=== PATIENT | male | born 1955 | race Caucasian/White ===

== ENCOUNTER 2024-10-06 11:34 | Outpatient (CLI) | payer MEDICARE, SELFPAY ==
--- NOTE | 2024-10-06 11:50 | ECG_ITS ---
Test Date: 2024-10-06 12:04:29 Measurements Intervals [place] Switch Rate: 70 P: 73 [place]: 185 QRS: 48 QRSD: 89 T: 52 QT: 363 QTc: 392 Interpretive Statements SINUS RHYTHM No previous ECG available for comparison Electronically Signed On 10-06-2024 14:03:22 CDT by Gokul Mar M.D.
--- OUTSIDE RECORDS SUMMARY | 2024-10-06 13:47 | XMS_ITS | Data Portability ---
Author Organization [facility], Main Office Address [address] [place] [address] Assessment Encounter Date Assessment Date Assessment LastModified by Organization Details LastModified Time 02/05/2023 02/05/2023 Compression socks rosuvastatin blood work 6 month follow-up diet discussed exercise discussed [email or web address] Not available 02/05/2023 15:19:41 08/06/2023 08/06/2023 Continue current therapy and follow up in 6 months [email or web address] Not available 08/06/2023 22:53:29 Plan of Treatment Reminders Order Date Submit Date Provider Last Modified By Organization Details Last Modified Time Details Appointments None recorded . Lab CMP, serum or plasma 024 08/06/19 24 [facility], [address] [place], [address], 4 19:07:31 lipid panel, serum 024 08/06/19 24 [facility], [address] [place], [address], 4 19:07:57 CBC w/ auto diff 024 08/06/19 24 [facility], [address] [place], [address], 4 18:14:59 lipid panel, serum 023 02/06/20 23 [facility], [address] [place], [address], 3 19:20:59 CMP, serum or plasma 023 02/06/20 23 [facility], [address] [place], [address], 3 19:21:04 Referral None recorded . Procedures None recorded . Surgeries None recorded . Imaging None recorded . Medication Orders None recorded . Patient TargetsNo targets recorded. Patient InstructionsNo instructions recorded. Reason for Referral None Reported. Results Created Date Observation Date Name Description Value Unit Range Abnormal Flag Note LastModifiedBy Organization Detail LastModifiedTime 08/01/19 22 08/01/2021 COMPR EHENS RUI METAB OLIC PANEL aspartate aminotransfe rase 30 U/L 15-46 Not Available [facility] (Lab) [address] [place], [address], 08/01/2021 14:48:11 08/01/19 22 08/01/2021 COMPR EHENS RUI METAB OLIC PANEL GFR >60 Refer ence Range : [place] ge GFR Healt hy Adult : >60 mL/mi n/1.7 3 m2 Chron ic Kidne y Disea se: 15-60 mL/mi n/1.7 3 m2 Kidne y Failu re: <15/m L/min /1.73 m2 www.n iddk. nih.g ov The MDRD study equat ion has not been valid ated in child virgil <18 years of age; pregn ant women ; the elder ly >85 years of age; or in some racia l or ethni c subgr oups, such as [facility] nics. Outsi de the valid ated shayla eters , estim ated GFR is less accur ate, requi ring clini margret judgm ent on a case- by-ca se basis . Clini margret inter preta tion for other races and ages must be made by the clini nargis. The MDRD study equat ion has not been valid ated for the evalu ation of serum creat inine relat ed to nutri renea l statu s or medic ation usage . For perso ns <18 years of age, a pedia tric GFR calcu lator is avail able on the [facility] websi te: https :[email or web address] [email or web address] [email or web address] rg/pr ofess ional s/kdo qi/gf r_cal culat or Not Available [facility] (Lab) [address] [place], [address], 08/01/2021 14:48:11 08/01/19 22 08/01/2021 COMPR EHENS RUI METAB OLIC PANEL alkaline phosphatase 64 U/L 38-126 Not Available [facility] (Lab) [address] [facility] [place], [address], 08/01/2021 14:48:11 08/01/19 22 08/01/2021 COMPR EHENS RUI METAB OLIC PANEL alanine aminotransfe rase 28 U/L 0-50 Not Available [facility] (Lab) [address] [place], [address], 08/01/2021 14:48:11 08/01/19 22 08/01/2021 COMPR EHENS RUI METAB OLIC PANEL bilirubin, total 0.40 mg/dL 0.20-1 .30 Not Available [facility] (Lab) [address] [place], [address], 08/01/2021 14:48:11 08/01/19 22 08/01/2021 COMPR EHENS RUI METAB OLIC PANEL calcium 9.3 mg/dL 8.4-10 .2 Not Available [facility] (Lab) [address] [place], [address], 08/01/2021 14:48:11 08/01/19 22 08/01/2021 COMPR EHENS RUI METAB OLIC PANEL total protein 7.0 g/dL 6.3-8. 2 Not Available [facility] (Lab) [address] [place], [address], 08/01/2021 14:48:11 08/01/19 22 08/01/2021 COMPR EHENS RUI METAB OLIC PANEL albumin 4.2 g/dL 3.0-4. 4 Not Available [facility] (Lab) [address] [place], [address], 08/01/2021 14:48:11 08/01/19 22 08/01/2021 COMPR EHENS RUI METAB OLIC PANEL globulin 2.8 g/dL 2.6-4. 2 Not Available [facility] (Lab) [address] [place], [address], 08/01/2021 14:48:11 08/01/19 22 08/01/2021 COMPR EHENS RUI METAB OLIC PANEL A/G ratio 1.5 ratio 1.0-2. 0 Not Available [facility] (Lab) [address] [place], [address], 08/01/2021 14:48:11 08/01/19 22 08/01/2021 COMPR EHENS RUI METAB OLIC PANEL carbon dioxide 28 mmol/ L 22-30 Not Available [facility] (Lab) [address] [facility] [place], [address], 08/01/2021 14:48:11 08/01/19 22 08/01/2021 COMPR EHENS RUI METAB OLIC PANEL sodium 136 mmol/ L 137-14 5 low Not Available [facility] (Lab) [address] [place], [address], 08/01/2021 14:48:11 08/01/19 22 08/01/2021 COMPR EHENS RUI METAB OLIC PANEL potassium 5.2 mmol/ L 3.5-5. 1 high Not Available [facility] (Lab) [address] [place], [address], 08/01/2021 14:48:11 08/01/19 22 08/01/2021 COMPR EHENS RUI METAB OLIC PANEL chloride 103 mmol/ L 98-107 Not Available [facility] (Lab) [address] [place], [address], 08/01/2021 14:48:11 08/01/19 22 08/01/2021 COMPR EHENS RUI METAB OLIC PANEL agap 10.2 mmol/ L 14-22 low Not Available [facility] (Lab) [address] [place], [address], 08/01/2021 14:48:11 08/01/19 22 08/01/2021 COMPR EHENS RUI METAB OLIC PANEL glucose 109 mg/dL 70-99 high Not Available [facility] (Lab) [address] [place], [address], 08/01/2021 14:48:11 08/01/19 22 08/01/2021 COMPR EHENS RUI METAB OLIC PANEL BUN 10 mg/dL 8-19 Not Available [facility] (Lab) [address] [place], [address], 08/01/2021 14:48:11 08/01/19 22 08/01/2021 COMPR EHENS RUI METAB OLIC PANEL creatinine 0.82 mg/dL 0.66-1 .25 Not Available [facility] (Lab) [address] [place], [address], 08/01/2021 14:48:11 08/01/19 22 08/01/2021 LIPID PANEL cholesterol 174 mg/dL 140-19 9 NIH ERIC NSUS RECOM MENDA TION FOR MARY STERO L: ADULT CHILD LOW RISK: <200 <170 BORDE RLINE : <200- 239 ----- HIGH RISK: >240 >200 Not Available [facility] (Lab) [address] [place], [address], 08/01/2021 14:48:16 08/01/1908/01/2021 LIPID PANEL triglyceride s 70 mg/dL 0-150 NIH ERIC NSUS REPOR T RECOM MENDA TION FOR TRIGL YCERI JOSS: ADULT CHILD LOW RISK: <150 ----- BODER LINE: 150-1 99 ----- HIGH RISK: >200 ----- Not Available [facility] (Lab) [address] [place], [address], 08/01/2021 14:48:16 08/01/19 22 08/01/2021 LIPID PANEL HDL cholesterol 58 mg/dL 40- Not Available [facility] (Lab) [address] [place], [address], 08/01/2021 14:48:16 08/01/19 22 08/01/2021 LIPID PANEL LDL cholesterol, calculated 102 mg/dL 0-130 NIH ERIC NSUS REPOR T RECOM MENDA TIONS FOR LDL: ADULT CHILD LOW RISK <130 <110 (OPTI MAL LDL) <100 ----- BORDE RLINE : 130-1 59 ----- HIGH RISK: >160 >130 A TRIGL YCERI DE RESUL T >400 INVAL IDATE S THE CALCU LATIO N FOR LDL FRACT IONAT ION - THE LDL RESUL T WILL NOT BE REPOR LEODAN. Not Available [facility] (Lab) [address] [place], [address], 08/01/2021 14:48:16 02/07/20 22 02/06/2022 COMPR EHENS RUI METAB OLIC PANEL alanine aminotransfe rase 18 U/L 0-50 Not Available [facility] (Lab) [address] [place], [address], 02/06/2022 15:11:05 02/07/20 22 02/06/2022 COMPR EHENS RUI METAB OLIC PANEL aspartate aminotransfe rase 25 U/L 15-46 Not Available [facility] (Lab) [address] [place], [address], 02/06/2022 15:11:05 02/07/20 22 02/06/2022 COMPR EHENS RUI METAB OLIC PANEL bilirubin, total 0.50 mg/dL 0.20-1 .30 Not Available [facility] (Lab) [address] [place], [address], 02/06/2022 15:11:05 02/07/20 22 02/06/2022 COMPR EHENS RUI METAB OLIC PANEL calcium 9.5 mg/dL 8.4-10 .2 Not Available [facility] (Lab) [address] [place], [address], 02/06/2022 15:11:05 02/07/20 22 02/06/2022 COMPR EHENS RUI METAB OLIC PANEL total protein 7.0 g/dL 6.3-8. 2 Not Available [facility] (Lab) [address] [place], [address], 02/06/2022 15:11:05 02/07/20 22 02/06/2022 COMPR EHENS RUI METAB OLIC PANEL albumin 4.4 g/dL 3.0-4. 4 Not Available [facility] (Lab) [address] [place], [address], 02/06/2022 15:11:05 02/07/20 22 02/06/2022 COMPR EHENS RUI METAB OLIC PANEL globulin 2.6 g/dL 2.6-4. 2 Not Available [facility] (Lab) [address] [place], [address], 02/06/2022 15:11:05 02/07/20 22 02/06/2022 COMPR EHENS RUI METAB OLIC PANEL A/G ratio 1.7 ratio 1.0-2. 0 Not Available [facility] (Lab) [address] [place], [address], 02/06/2022 15:11:05 02/07/20 22 02/06/2022 COMPR EHENS RUI METAB OLIC PANEL carbon dioxide 22 mmol/ L 22-30 Not Available [facility] (Lab) [address] [place], [address], 02/06/2022 15:11:05 02/07/20 22 02/06/2022 COMPR EHENS RUI METAB OLIC PANEL sodium 135 mmol/ L 137-14 5 low Not Available [facility] (Lab) [address] [place], [address], 02/06/2022 15:11:05 02/07/20 22 02/06/2022 COMPR EHENS RUI METAB OLIC PANEL potassium 4.5 mmol/ L 3.5-5. 1 Not Available [facility] (Lab) [address] [place], [address], 02/06/2022 15:11:05 02/07/20 22 02/06/2022 COMPR EHENS RUI METAB OLIC PANEL chloride 106 mmol/ L 98-107 Not Available [facility] (Lab) [address] [place], [address], 02/06/2022 15:11:05 02/07/20 22 02/06/2022 COMPR EHENS RUI METAB OLIC PANEL anion gap 11.5 mmol/ L 14-22 low Not Available [facility] (Lab) [address] [place], [address], 02/06/2022 15:11:05 02/07/20 22 02/06/2022 COMPR EHENS RUI METAB OLIC PANEL glucose 103 mg/dL 70-99 high Not Available [facility] (Lab) [address] [place], [address], 02/06/2022 15:11:05 02/07/20 22 02/06/2022 COMPR EHENS RUI METAB OLIC PANEL BUN 12 mg/dL 8-19 Not Available [facility] (Lab) [address] [place], [address], 02/06/2022 15:11:05 02/07/20 22 02/06/2022 COMPR EHENS RUI METAB OLIC PANEL creatinine 0.81 mg/dL 0.66-1 .25 Not Available [facility] (Lab) [address] [place], [address], 02/06/2022 15:11:05 02/07/20 22 02/06/2022 COMPR EHENS RUI METAB OLIC PANEL GFR >60 Refer ence Range : [place] ge GFR Healt hy Adult : >60 mL/mi n/1.7 3 m2 Chron ic Kidne y Disea se: 15-60 mL/mi n/1.7 3 m2 Kidne y Failu re: <15/m L/min /1.73 m2 www.n iddk. [facility].g ov The MDRD study equat ion has not been valid ated in child virgil <18 years of age; pregn ant women ; the elder ly >85 years of age; or in some racia l or ethni c subgr oups, such as [facility] nics. Outsi de the valid ated shayla eters , estim ated GFR is less accur ate, requi ring clini margret judgm ent on a case- by-ca se basis . Clini margret inter preta tion for other races and ages must be made by the clini nargis. The MDRD study equat ion has not been valid ated for the evalu ation of serum creat inine relat ed to nutri renea l statu s or medic ation usage . For perso ns <18 years of age, a pedia tric GFR calcu lator is avail able on the [facility] websi te: https :[email or web address] [email or web address].o rg/pr ofess ional s/kdo qi/gf r_cal culat or Not Available [facility] (Lab) [address] [place], [address], 02/06/2022 15:11:05 02/07/20 22 02/06/2022 COMPR EHENS RUI METAB OLIC PANEL alkaline phosphatase 56 U/L 38-126 Not Available [facility] (Lab) [address] [place], [address], 02/06/2022 15:11:05 02/07/20 22 02/06/2022 LIPID PANEL cholesterol 124 mg/dL 140-19 9 low NIH ERIC NSUS RECOM MENDA TION FOR MARY STERO L: ADULT CHILD LOW RISK: <200 <170 BORDE RLINE : <200- 239 ----- HIGH RISK: >240 >200 Not Available [facility] (Lab) [address] [place], [address], 02/06/2022 15:10:59 02/07/20 22 02/06/2022 LIPID PANEL triglyceride s 46 mg/dL 0-150 NIH ERIC NSUS REPOR T RECOM MENDA TION FOR TRIGL YCERI JOSS: ADULT CHILD LOW RISK: <150 ----- BODER LINE: 150-1 99 ----- HIGH RISK: >200 ----- Not Available [facility] (Lab) [address] [place], [address], 02/06/2022 15:10:59 02/07/20 22 02/06/2022 LIPID PANEL HDL cholesterol 55 mg/dL 40- Not Available [facility] (Lab) [address] [place], [address], 02/06/2022 15:10:59 02/07/20 22 02/06/2022 LIPID PANEL LDL cholesterol, calculated 60 mg/dL 0-130 NIH ERIC NSUS REPOR T RECOM MENDA TIONS FOR LDL: ADULT CHILD LOW RISK <130 <110 (OPTI MAL LDL) <100 ----- BORDE RLINE : 130-1 59 ----- HIGH RISK: >160 >130 A TRIGL YCERI DE RESUL T >400 INVAL IDATE S THE CALCU LATIO N FOR LDL FRACT IONAT ION - THE LDL RESUL T WILL NOT BE REPOR LEODAN. Not Available [facility] (Lab) [address] [place], [address], 02/06/2022 15:10:59 02/06/20 23 02/05/2023 LIPID PANEL cholesterol 138 mg/dL 140-19 9 low NIH ERIC NSUS RECOM MENDA TION FOR MARY STERO L: ADULT CHILD LOW RISK: <200 <170 BORDE RLINE : <200- 239 ----- HIGH RISK: >240 >200 Not Available [facility] (Lab) [address] [place], [address], 02/05/2023 19:20:59 02/06/20 23 02/05/2023 LIPID PANEL triglyceride s 89 mg/dL 0-150 NIH ERIC NSUS REPOR T RECOM MENDA TION FOR TRIGL YCERI JOSS: ADULT CHILD LOW RISK: <150 ----- BODER LINE: 150-1 99 ----- HIGH RISK: >200 ----- Not Available [facility] (Lab) [address] [place], [address], 02/05/2023 19:20:59 02/06/20 23 02/05/2023 LIPID PANEL HDL cholesterol 61 mg/dL 40- Not Available [facility] (Lab) [address] [place], [address], 02/05/2023 19:20:59 02/06/20 23 02/05/2023 LIPID PANEL LDL cholesterol, calculated 59 mg/dL 0-130 NIH ERIC NSUS REPOR T RECOM MENDA TIONS FOR LDL: ADULT CHILD LOW RISK <130 <110 (OPTI MAL LDL) <100 ----- BORDE RLINE : 130-1 59 ----- HIGH RISK: >160 >130 A TRIGL YCERI DE RESUL T >400 INVAL IDATE S THE CALCU LATIO N FOR LDL FRACT IONAT ION - THE LDL RESUL T WILL NOT BE REPOR LEODAN. Not Available [facility] (Lab) [address] [place], [address], 02/05/2023 19:20:59 02/06/20 23 02/05/2023 COMPR EHENS RUI METAB OLIC PANEL sodium 137 mmol/ L 137-14 5 Not Available [facility] (Lab) [address] [place], [address], 02/05/2023 19:21:04 02/06/20 23 02/05/2023 COMPR EHENS RUI METAB OLIC PANEL potassium 5.3 mmol/ L 3.5-5. 1 high Not Available [facility] (Lab) [address] [place], [address], 02/05/2023 19:21:04 02/06/20 23 02/05/2023 COMPR EHENS RUI METAB OLIC PANEL chloride 101 mmol/ L 98-107 Not Available [facility] (Lab) [address] [place], [address], 02/05/2023 19:21:04 02/06/20 23 02/05/2023 COMPR EHENS RUI METAB OLIC PANEL carbon dioxide 27 mmol/ L 22-30 Not Available [facility] (Lab) [address] [place], [address], 02/05/2023 19:21:04 02/06/20 23 02/05/2023 COMPR EHENS RUI METAB OLIC PANEL anion gap 14.3 mmol/ L 14-22 Not Available [facility] (Lab) [address] [place], [address], 02/05/2023 19:21:04 02/06/20 23 02/05/2023 COMPR EHENS RUI METAB OLIC PANEL glucose 96 mg/dL 70-99 Not Available [facility] (Lab) [address] [place], [address], 02/05/2023 19:21:04 02/06/20 23 02/05/2023 COMPR EHENS RUI METAB OLIC PANEL BUN 11 mg/dL 8-19 Not Available [facility] (Lab) [address] [place], [address], 02/05/2023 19:21:04 02/06/20 23 02/05/2023 COMPR EHENS RUI METAB OLIC PANEL creatinine 0.81 mg/dL 0.66-1 .25 Not Available [facility] (Lab) [address] [place], [address], 02/05/2023 19:21:04 02/06/20 23 02/05/2023 COMPR EHENS RUI METAB OLIC PANEL GFR >60 Refer ence Range : [place] GFR Healt hy Adult : >60 mL/mi n/1.7 3 m2 Chron ic Kidne y Disea se: 15-60 mL/mi n/1.7 3 m2 Kidne y Failu re: <15/m L/min /1.73 m2 www.n iddk. nih.g ov The MDRD study equat ion has not been valid ated in child virgil <18 years of age; pregn ant women ; the elder ly >85 years of age; or in some racia l or ethni c subgr oups, such as [facility]pa nics. Outsi de the valid ated shayla eters , estim ated GFR is less accur ate, requi ring clini margret judgm ent on a case- by-ca se basis . Clini margret inter preta tion for other races and ages must be made by the clini nargis. The MDRD study equat ion has not been valid ated for the evalu ation of serum creat inine relat ed to nutri renea l statu s or medic ation usage . For perso ns <18 years of age, a pedia tric GFR calcu lator is avail able on the [facility] websi te: https ://carson w.yon [email or web address] rg/pr ofess ional s/kdo qi/gf r_cal culat or Not Available [facility] (Lab) [address] [place], [address], 02/05/2023 19:21:04 02/06/20 23 02/05/2023 COMPR EHENS RUI METAB OLIC PANEL alkaline phosphatase 57 U/L 38-126 Not Available [facility] (Lab) [address] [place], [address], 02/05/2023 19:21:04 02/06/20 23 02/05/2023 COMPR EHENS RUI METAB OLIC PANEL alanine aminotransfe rase 25 U/L 0-50 Not Available [facility] (Lab) [address] [place], [address], 02/05/2023 19:21:04 02/06/20 23 02/05/2023 COMPR EHENS RUI METAB OLIC PANEL aspartate aminotransfe rase 28 U/L 15-46 Not Available [facility] (Lab) [address] [place], [address], 02/05/2023 19:21:04 02/06/20 23 02/05/2023 COMPR EHENS RUI METAB OLIC PANEL bilirubin, total 0.40 mg/dL 0.20-1 .30 Not Available [facility] (Lab) [address] [place], [address], 02/05/2023 19:21:04 02/06/20 23 02/05/2023 COMPR EHENS RUI METAB OLIC PANEL calcium 9.7 mg/dL 8.4-10 .2 Not Available [facility] (Lab) [address] [place], [address], 02/05/2023 19:21:04 02/06/20 23 02/05/2023 COMPR EHENS RUI METAB OLIC PANEL total protein 7.3 g/dL 6.3-8. 2 Not Available [facility] (Lab) [address] [place], [address], 02/05/2023 19:21:04 02/06/20 23 02/05/2023 COMPR EHENS RUI METAB OLIC PANEL albumin 4.4 g/dL 3.0-4. 4 Not Available [facility] (Lab) [address] [place], [address], 02/05/2023 19:21:04 02/06/20 23 02/05/2023 COMPR EHENS RUI METAB OLIC PANEL globulin 2.9 g/dL 2.6-4. 2 Not Available [facility] (Lab) [address] [place], [address], 02/05/2023 19:21:04 02/06/20 23 02/05/2023 COMPR EHENS RUI METAB OLIC PANEL A/G ratio 1.5 ratio 1.0-2. 0 Not Available [facility] (Lab) [address] [place], [address], 02/05/2023 19:21:04 08/06/19 24 08/06/2023 CBC/C OMPLE TE BLD COUNT W/DIF F white blood cells 7.1 x10'3 /uL 4.2-10 .8 Not Available [facility] (Lab) [address] [place], [address], 08/06/2023 18:14:59 08/06/19 24 08/06/2023 CBC/C OMPLE TE BLD COUNT W/DIF F red blood cells 4.63 x10'6 /uL 4.10-5 .80 Not Available [facility] (Lab) [address] [place], [address], 08/06/2023 18:14:59 08/06/19 24 08/06/2023 CBC/C OMPLE TE BLD COUNT W/DIF F hemoglobin 14.7 g/dL 13.2-1 7.0 Not Available [facility] (Lab) [address] [place], [address], 08/06/2023 18:14:59 08/06/19 24 08/06/2023 CBC/C OMPLE TE BLD COUNT W/DIF F hematocrit 43.6 % 39.3-5 0.0 Not Available [facility] (Lab) [address] [place], [address], 08/06/2023 18:14:59 08/06/19 24 08/06/2023 CBC/C OMPLE TE BLD COUNT W/DIF F mean red cell volume 94.2 fL 80.0-9 7.0 Not Available [facility] (Lab) [address] [place], [address], 08/06/2023 18:14:59 08/06/19 24 08/06/2023 CBC/C OMPLE TE BLD COUNT W/DIF F mean red cell hemoglobin 31.7 pg 27.0-3 3.0 Not Available [facility] (Lab) [address] [place], [address], 08/06/2023 18:14:59 08/06/19 24 08/06/2023 CBC/C OMPLE TE BLD COUNT W/DIF F mean RBC HGB concentratio n 33.7 g/dL 31.0-3 6.0 Not Available [facility] (Lab) [address] [place], [address], 08/06/2023 18:14:59 08/06/19 24 08/06/2023 CBC/C OMPLE TE BLD COUNT W/DIF F red cell distribution width 13.2 % 11.8-1 5.5 Not Available [facility] (Lab) [address] [place], [address], 08/06/2023 18:14:59 08/06/19 24 08/06/2023 CBC/C OMPLE TE BLD COUNT W/DIF F platelets 232 x10'3 /uL 150-40 0 Not Available [facility] (Lab) [address] [place], [address], 08/06/2023 18:14:59 08/06/19 24 08/06/2023 CBC/C OMPLE TE BLD COUNT W/DIF F mean platelet volume 10.8 fL 9.0-12 .4 Not Available [facility] (Lab) [address] [place], [address], 08/06/2023 18:14:59 08/06/19 24 08/06/2023 CBC/C OMPLE TE BLD COUNT W/DIF F neutrophils 46.7 % 39.0-7 2.0 Not Available [facility] (Lab) [address] [place], [address], 08/06/2023 18:14:59 08/06/19 24 08/06/2023 CBC/C OMPLE TE BLD COUNT W/DIF F lymphocytes 39.8 % 16.0-4 7.0 Not Available [facility] (Lab) [address] [facility] [place], [address], 08/06/2023 18:14:59 08/06/19 24 08/06/2023 CBC/C OMPLE TE BLD COUNT W/DIF F monocytes 9.6 % 5.0-12 .0 Not Available [facility] (Lab) [address] [facility] [place], [address], 08/06/2023 18:14:59 08/06/19 24 08/06/2023 CBC/C OMPLE TE BLD COUNT W/DIF F eosinophils 3.2 % 1.0-7. 0 Not Available [facility] (Lab) [address] [place], [address], 08/06/2023 18:14:59 08/06/19 24 08/06/2023 CBC/C OMPLE TE BLD COUNT W/DIF F basophils 0.4 % 0.0-2. 0 Not Available [facility] (Lab) [address] [place], [address], 08/06/2023 18:14:59 08/06/19 24 08/06/2023 CBC/C OMPLE TE BLD COUNT W/DIF F immature granulocytes 0.3 % 0.00-0 .50 Not Available [facility] (Lab) [address] [place], [address], 08/06/2023 18:14:59 08/06/19 24 08/06/2023 CBC/C OMPLE TE BLD COUNT W/DIF F neutrophils, absolute count 3.32 x10'3 /uL 1.5-8. 0 Not Available [facility] (Lab) [address] [place], [address], 08/06/2023 18:14:59 08/06/19 24 08/06/2023 CBC/C OMPLE TE BLD COUNT W/DIF F lymphocytes, absolute count 2.83 x10'3 /uL 1.07-3 .43 Not Available [facility] (Lab) [address] [place], [address], 08/06/2023 18:14:59 08/06/19 24 08/06/2023 CBC/C OMPLE TE BLD COUNT W/DIF F monocytes, absolute count 0.68 x10'3 /uL 0.29-0 .99 Not Available [facility] (Lab) [address] [place], [address], 08/06/2023 18:14:59 08/06/19 24 08/06/2023 CBC/C OMPLE TE BLD COUNT W/DIF F eosinophils, absolute count 0.23 x10'3 /uL 0.02-0 .53 Not Available [facility] (Lab) [address] [place], [address], 08/06/2023 18:14:59 08/06/19 24 08/06/2023 CBC/C OMPLE TE BLD COUNT W/DIF F basophils, absolute count 0.03 x10'3 /uL 0.01-0 .08 Not Available [facility] (Lab) [address] [place], [address], 08/06/2023 18:14:59 08/06/19 24 08/06/2023 CBC/C OMPLE TE BLD COUNT W/DIF F immature granulocytes ,absolute 0.02 x10'3 /uL 0.00-0 .05 Not Available [facility] (Lab) [address] [place], [address], 08/06/2023 18:14:59 08/06/19 24 08/06/2023 CBC/C OMPLE TE BLD COUNT W/DIF F nucleated red blood cells 0.0 % -0 Not Available [facility] (Lab) [address] [place], [address], 08/06/2023 18:14:59 08/06/19 24 08/06/2023 CBC/C OMPLE TE BLD COUNT W/DIF F NRBC# 0.00 x10'3 /uL Not Available [facility] (Lab) [address] [place], [address], 08/06/2023 18:14:59 08/06/19 24 08/06/2023 COMPR EHENS RUI METAB OLIC PANEL sodium 134 mmol/ L 137-14 5 low Not Available [facility] (Lab) [address] [place], [address], 08/06/2023 19:07:53 08/06/19 24 08/06/2023 COMPR EHENS RUI METAB OLIC PANEL potassium 4.5 mmol/ L 3.5-5. 1 Not Available [facility] (Lab) [address] [place], [address], 08/06/2023 19:07:53 08/06/19 24 08/06/2023 COMPR EHENS RUI METAB OLIC PANEL chloride 101 mmol/ L 98-107 Not Available [facility] (Lab) [address] [place], [address], 08/06/2023 19:07:53 08/06/19 24 08/06/2023 COMPR EHENS RUI METAB OLIC PANEL carbon dioxide 26 mmol/ L 22-30 Not Available [facility] (Lab) [address] [place], [address], 08/06/2023 19:07:53 08/06/19 24 08/06/2023 COMPR EHENS RUI METAB OLIC PANEL anion gap 11.5 mmol/ L 14-22 low Not Available [facility] (Lab) [address] [place], [address], 08/06/2023 19:07:53 08/06/19 24 08/06/2023 COMPR EHENS RUI METAB OLIC PANEL glucose 103 mg/dL 70-99 high Not Available [facility] (Lab) [address] [place], [address], 08/06/2023 19:07:53 08/06/19 24 08/06/2023 COMPR EHENS RUI METAB OLIC PANEL BUN 12 mg/dL 8-19 Not Available [facility] (Lab) [address] [place], [address], 08/06/2023 19:07:53 08/06/19 24 08/06/2023 COMPR EHENS RUI METAB OLIC PANEL creatinine 0.81 mg/dL 0.66-1 .25 Not Available [facility] (Lab) [address] [place], [address], 08/06/2023 19:07:53 08/06/19 24 08/06/2023 COMPR EHENS RUI METAB OLIC PANEL GFR >60 Refer ence Range : [place] ge GFR Healt hy Adult : >60 mL/mi n/1.7 3 m2 Chron ic Kidne y Disea se: 15-60 mL/mi n/1.7 3 m2 Kidne y Failu re: <15/m L/min /1.73 m2 www.n iddk. nih.g ov The MDRD study equat ion has not been valid ated in child virgil <18 years of age; pregn ant women ; the elder ly >85 years of age; or in some racia l or ethni c subgr oups, such as Hispa nics. Outsi de the valid ated shayla eters , estim ated GFR is less accur ate, requi ring clini margret judgm ent on a case- by-ca se basis . Clini margret inter preta tion for other races and ages must be made by the clini nargis. The MDRD study equat ion has not been valid ated for the evalu ation of serum creat inine relat ed to nutri renea l statu s or medic ation usage . For perso ns <18 years of age, a pedia tric GFR calcu latdomonique is avail able on the [facility] websi te: https ://carson cardona.o rg/pr ofess ional s/kdo qi/gf r_cal culat or Not Available [facility] (Lab) [address] [place], [address], 08/06/2023 19:07:53 08/06/19 24 08/06/2023 COMPR EHENS RUI METAB OLIC PANEL alkaline phosphatase 67 U/L 38-126 Not Available [facility] (Lab) [address] [place], [address], 08/06/2023 19:07:53 08/06/19 24 08/06/2023 COMPR EHENS RUI METAB OLIC PANEL alanine aminotransfe rase 29 U/L 0-50 Not Available [facility] (Lab) [address] [place], [address], 08/06/2023 19:07:53 08/06/19 24 08/06/2023 COMPR EHENS RUI METAB OLIC PANEL aspartate aminotransfe rase 32 U/L 15-46 Not Available [facility] (Lab) [address] [place], [address], 08/06/2023 19:07:53 08/06/19 24 08/06/2023 COMPR EHENS RUI METAB OLIC PANEL bilirubin, total 0.30 mg/dL 0.20-1 .30 Not Available [facility] (Lab) [address] [place], [address], 08/06/2023 19:07:53 08/06/19 24 08/06/2023 COMPR EHENS RUI METAB OLIC PANEL calcium 9.8 mg/dL 8.4-10 .2 Not Available [facility] (Lab) [address] [place], [address], 08/06/2023 19:07:53 08/06/1908/06/2023 COMPR EHENS URI METAB OLIC PANEL total protein 7.4 g/dL 6.3-8. 2 Not Available [facility] (Lab) [address] [place], [address], 08/06/2023 19:07:53 08/06/19 24 08/06/2023 COMPR EHENS RUI METAB OLIC PANEL albumin 4.4 g/dL 3.0-4. 4 Not Available [facility] (Lab) [address] [place], [address], 08/06/2023 19:07:53 08/06/19 24 08/06/2023 COMPR EHENS RUI METAB OLIC PANEL globulin 3.0 g/dL 2.6-4. 2 Not Available [facility] (Lab) [address] [place], [address], 08/06/2023 19:07:53 08/06/1908/06/2023 COMPR EHENS RUI METAB OLIC PANEL A/G ratio 1.5 ratio 1.0-2. 0 Not Available [facility] (Lab) [address] [place], [address], 08/06/2023 19:07:53 08/06/1908/06/2023 LIPID PANEL cholesterol 157 mg/dL 140-19 9 NIH ERIC NSUS RECOM MENDA TION FOR MARY STERO L: ADULT CHILD LOW RISK: <200 <170 BORDE RLINE : <200- 239 ----- HIGH RISK: >240 >200 Not Available [facility] (Lab) [address] [place], [address], 08/06/2023 19:07:57 08/06/1908/06/2023 LIPID PANEL triglyceride s 77 mg/dL 0-150 NIH ERIC NSUS REPOR T RECOM MENDA TION FOR TRIGL YCERI JOSS: ADULT CHILD LOW RISK: <150 ----- BODER LINE: 150-1 99 ----- HIGH RISK: >200 ----- Not Available [facility] (Lab) [address] [place], [address], 08/06/2023 19:07:57 08/06/19 24 08/06/2023 LIPID PANEL HDL cholesterol 60 mg/dL 40- Not Available [facility] (Lab) [address] [place], [address], 08/06/2023 19:07:57 08/06/1908/06/2023 LIPID PANEL LDL cholesterol, calculated 82 mg/dL 0-130 NIH ERIC NSUS REPOR T RECOM MENDA TIONS FOR LDL: ADULT CHILD LOW RISK <130 <110 (OPTI MAL LDL) <100 ----- FERNANDA RLINE : 130-1 59 ----- HIGH RISK: >160 >130 A TRIGL YCERI DE RESUL T >400 INVAL IDATE S THE CALCU LATIO N FOR LDL FRACT IONAT ION - THE LDL RESUL T WILL NOT BE REPOR LEODAN. Not Available [facility] (Lab) [address] [place], [address], 08/06/2023 19:07:57 Result Notes None recorded. Problems Name Problem SNOMED Code Status Onset Date Resolution Date Notes Provider Name and Address Organization Details Recorded Time Pure hypercholeste rolemia 359098626 Active Not Available [facility] 4 07:19:16 Malaise and fatigue 312788229 Active Not Available [facility] 4 07:19:16 Varicose veins of lower extremity 22340823 Active Not Available [facility] 4 07:19:16 Chronic rhinitis 74280225 Active Not Available [facility] 4 07:19:16 Problem Notes None recorded. Procedures Surgical History Date Name Laterality Status Provider Name and Address Organization Details Recorded Time 11/14/19 excision of skin carcinoma completed Not Available [facility] 09/27/2022 05:56:31 08/16/19 17 Colonoscopy completed Not Available [facility] 09/28/19 23 05:56:31 08/20/19 07 Colonoscopy completed Not Available [facility] 09/28/19 23 05:56:31 Imaging Results None recorded. Procedure Notes None recorded. Medical Equipment None Reported. Allergies No known drug allergies Medications Name Sig Start Date Stop Date Status Note LastModified by Organization Details LastModified Time amoxicillin 500 mg capsule TAKE 1 CAPSULE BY MOUTH THREE TIMES DAILY UNTIL GONE 08/07 completed Not Available Not Available Not Available penicillin V potassium 500 mg tablet TAKE 1 TABLET BY MOUTH 4 TIMES DAILY UNTIL ALL TAKEN active Not Available Not Available No t Available sildenafil 100 mg tablet TAKE ONE TABLET BY MOUTH 30 MINUTES BEFORE INTERCOUR SE NO MORE THAN ONE TABLET IN 24 HOURS active Not Available Not Available No t Available amoxicillin 500 mg tablet Take 1 tablet 3 times a day by oral route for 10 days. 01/28 completed Not Available Not Available Not Available erythromyci n 5 mg/gram (0.5 %) eye ointment APPLY TOPICALLY TO UPPER LID FOUR TIMES DAILY FOR ONE WEEK active Not Available Not Available No t Available triamcinolo ne acetonide 0.1 % topical ointment 01/28 completed Not Available Not Available Not Available rosuvastati n 10 mg tablet TAKE 1 TABLET BY MOUTH DAILY 2022 active Not Available Not Available Not Avai lable alfuzosin ER 10 mg tablet,exte nded release 24 hr TAKE 1 TABLET BY MOUTH ONCE DAILY active Not Available Not Available No t Available tadalafil 20 mg tablet TAKE 1 TABLET BY MOUTH NEEDED active Not Available Not Available No t Available Fish Oil 3 caps daily 2016 active Not Available Not Available Not Avai lable Suprep Bowel Prep Kit 17.5 gram-3.13 gram-1.6 gram oral solution MIX AND DRINK UTD 01/31 completed Not Available Not Available Not Available Vitals Date Recorded Body mass index (BMI) Body height Heart rate Body temperature Body weight Systolic blood pressure Diastolic blood pressure Provider Name and Address Organization Details Last Updated DateTime 2 25.6 kg/m2 182.88 cm 72 /min 97.3 [degF] 41922.9 6 g 120 mm[Hg] 78 mm[Hg] Not Available [facility] 3 05:57:31 Date Recorded Body mass index (BMI) Body height Heart rate Body temperature Body weight Systolic blood pressure Diastolic blood pressure Provider Name and Address Organization Details Last Updated DateTime 2 24.1 kg/m2 182.88 cm 72 /min 97.3 [degF] 84665.4 4 g 122 mm[Hg] 80 mm[Hg] Not Available [facility] 3 05:57:31 Date Recorded Body mass index (BMI) Body height Heart rate Body temperature Body weight Systolic blood pressure Diastolic blood pressure Provider Name and Address Organization Details Last Updated DateTime 3 24.5 kg/m2 182.88 cm 72 /min 98.2 [degF] 65691.2 2 g 120 mm[Hg] 72 mm[Hg] Not Available [facility] 3 05:57:32 Date Recorded Body height Body mass index (BMI) Body weight Body temperature Heart rate Systolic blood pressure Diastolic blood pressure Provider Name and Address Organization Details Last Updated DateTime 3 182.88 cm 24 kg/m2 13266.8 5 g 98.8 [degF] 96 /min 116 mm[Hg] 70 mm[Hg] DANE Crowder [facility] 3 14:19:51 Date Recorded Body height Body mass index (BMI) Body weight Body temperature Heart rate Systolic blood pressure Diastolic blood pressure Provider Name and Address Organization Details Last Updated DateTime 4 182.88 cm 25.8 kg/m2 53397.5 5 g 98.3 [degF] 76 /min 116 mm[Hg] 74 mm[Hg] DANE Crowder [facility] 4 14:48:56 Social History Question Answer Notes LastModified by Organization Details LastModified Time Tobacco Smoking Status Current Every Day Smoker cigarillo s, 5/day Not Available [facility] 09/27/2022 05:53:56 Do You Have An Advance Directive? No MIGRATION.030 [id number] Information not available 09/27/2022 What Is Your Level Of Alcohol Consumption? None MIGRATION.030 684864 Information not available 09/27/2022 Do You Wear A Helmet When Biking? No MIGRATION.030 338283 Information not available 09/27/2022 Are You Blind Or Do You Have Difficulty Seeing? Yes Wears Glasses MIGRATION.030 312080 Information not available 09/27/2022 What Is Your Level Of Caffeine Consumption? Moderate MIGRATION.0301 173161 Information not available 09/27/2022 How Much Tobacco Do You Chew? None MIGRATION.0301 048751 Information not available 09/27/2022 In The 14 Days Before Symptom Onset, Have You Had Close Contact With A Laboratory-confi rmed COVID-19 While That Case Was Ill? No MIGRATION.030 432548 Information not available 09/27/2022 In The 14 Days Before Symptom Onset, Have You Had Close Contact With A Person Who Is Under Investigation For COVID-19 While That Person Was Ill? No MIGRATION.0301 715498 Information not available 09/27/2022 Are You Deaf Or Do You Have Serious Difficulty Hearing? No MIGRATION.0301 393474 Information not available 09/27/2022 What Type Of Diet Are You Following? REGULAR MIGRATION.030 784188 Information not available 09/27/2022 Which Illicit Or Recreational Drugs Have You Used? None MIGRATION.030 970472 Information not available 09/27/2022 Do You Or Have You Ever Used E-cigarettes Or Vape? Never Used Electronic Cigarettes MIGRATION.030 378271 Information not available 09/27/2022 What Is The Highest Grade Or Level Of School You Have Completed Or The Highest Degree You Have Received? [id number] MIGRATION.030 584885 Information not available 09/27/2022 What Is Your Occupation? [employer] MIGRATION.030 233216 Information not available 09/27/2022 Have There Been Any Changes To Your Family Or Social Situation? No MIGRATION.0301 185959 Information not available 09/27/2022 What Is The Fluoride Status Of Your Home? Unknown MIGRATION.0301 177225 Information not available 09/27/2022 Are There Any Guns Present In Your Home? No MIGRATION.0301 112470 Information not available 09/27/2022 Do You Use Insect Repellent Routinely? No MIGRATION.0301 258649 Information not available 09/27/2022 Where Do You Live? [place]LevelHouse MIGRATION.0301 971657 Information not available 09/27/2022 Do You Have A Medical Power Of Structural Technician? No MIGRATION.0301 200506 Information not available 09/27/2022 What Was The Date Of Your Most Recent Tobacco Screening? 08/06/2023 [email or web address] Information not available 08/06/2023 Do You Have Any Pets? No MIGRATION.0301 405255 Information not available 09/27/2022 What Is Your Relationship Status? Single MIGRATION.0301 091229 Information not available 09/27/2022 Do You Use Your Seat Belt Or Car Seat Routinely? Yes MIGRATION.0301 759120 Information not available 09/27/2022 Do You Have Smoke And Carbon Monoxide Detectors In Your Home? Yes MIGRATION.0301 752185 Information not available 09/27/2022 At What Age Did You Start Smoking Tobacco? 45 MIGRATION.0301 536446 Information not available 09/27/2022 Are You Passively Exposed To Smoke? Yes MIGRATION.0301 698560 Information not available 09/27/2022 Do You Or Have You Ever Used Smokeless Tobacco? Never Used Smokeless Tobacco MIGRATION.0301 662286 Information not available 09/27/2022 Are There Any Smokers In Your House? Yes MIGRATION.0301 108055 Information not available 09/27/2022 How Much Tobacco Do You Smoke? 0.5 PPD MIGRATION.0301 235251 Information not available 09/27/2022 What Types Of Sporting Activities Do You Participate In? None MIGRATION.0301 253700 Information not available 09/27/2022 Do You Feel Stressed (tense, Restless, Nervous, Or Anxious, Or Unable To Sleep At Night)? [id number] MIGRATION.0301 039725 Information not available 09/27/2022 Do You Use Any Illicit Or Recreational Drugs? No MIGRATION.0301 777530 Information not available 09/27/2022 Do You Use Sunscreen Routinely? No MIGRATION.0301 267679 Information not available 09/27/2022 Have You Recently Traveled Abroad? No MIGRATION.0301 390160 Information not available 09/27/2022 Do You Have Any Dietary Restrictions? No MIGRATION.0301 818986 Information not available 09/27/2022 Do You Or Have You Ever Used Any Other Forms Of Tobacco Or Nicotine? No MIGRATION.0301 345267 Information not available 09/27/2022 Sex: Male Functional Status Question Answer Note LastModified by Organizat ion Details LastModified Time Do you have difficulty walking or climbing stairs? No MIGRATION.2801629 026 Information not available 09/27/2022 Do you have transportation difficulties? No MIGRATION.2279561 026 Information not available 09/27/2022 Are you able to walk? YESWOREST MIGRATION.1104984 026 Information not available 09/27/2022 Do you have difficulty doing errands alone? No MIGRATION.3948141 026 Information not available 09/27/2022 Are you able to care for yourself? Yes MIGRATION.4219415 026 Information not available 09/27/2022 Do you have difficulty dressing or bathing? No MIGRATION.4990323 026 Information not available 09/27/2022 What is your exercise level? None MIGRATION.5859212 026 Information not available 09/27/2022 Mental Status Question Answer Note LastModified by Organizat ion Details LastModified Time Do you have difficulty concentrating, remembering or making decisions? No MIGRATION.[id number] 6 Information not available 09/27/2022 Family History Relationship Description Onset Age of this Age Resolved Age Notes LastModified by Organization Details LastModified Time Mother Dementia 72 MIGRATION.617 [id number] Not available 09/27/2022 05:56:33 Father General health good MIGRATION.841 [id number] Not available 09/27/2022 05:56:33 Medical History Condition Response NERVE DISEASE N BLINDNESS N RHEUMATIC FEVER N KIDNEY STONES N BLADDER PROBLEMS N MRSA N OTHER # 1 N POLIO N LUNG DISEASE/DISORDER N RADIATION / CHEMOTHERAPY N COPD N Other # 2 N BLOOD DISEASES N EAR OR HEARING PROBLEMS N MUMPS N BOWEL PROBLEMS N DEPRESSION (INCLUDING POST ) N STROKE/TIA N ULCERS N BENIGN PROSTATIC HYPERPLASIA N MEASLES N MYOCARDIAL INFARCTION N OBESITY N GERD/NAUSEA N ANEURYSM N URINARY/BLADDER/KIDNEY PROBLEMS N CORONARY ARTERY DISEASE (CAD) N ADDICTION CONCERNS N ENDOMETRIOSIS N Impotence N USE OF BLOOD THINNERS N SKIN PROBLEMS N GASTROINTESTINAL DISORDER N PERIPHERAL VASCULAR DISEASE N MUSCLE,JOINT OR BONE PROBLEMS N GASTROINTESTINAL BLEEDING N BLOOD CLOTS N ASTHMA N CATARACTS N ERECTILE DYSFUNCTION Y VARICOSITIES N GI PROBLEMS N Low Testosterone N INFERTILITY N AIDS/HIV N CHEMOTHERAPY / RADIATION N LIVER DISEASE N MALE HYPOGONADISM N HYPERTENSION N Deficiency N TOURETTE'S N ANXIETY DISORDER N BLOOD TRANSFUSION N ANEMIA/BLOOD DISORDER N CHRONIC EAR INFECTIONS N BRONCHITIS N TUBERCULOSIS N GLAUCOMA N FOOT PROBLEM N DIVERTICULITIS N SLEEP APNEA N CHICKENPOX N INFECTIOUS DISEASE N HEART ARRHYTHMIA N PROSTATE N INSOMNIA N HIGH CHOLESTEROL / HYPERLIPIDEMIA Y HYPERTHYROIDISM N EYE PROBLEMS N EDEMA N CHRONIC PAIN SYNDROME N HYPOTHYROIDISM N CAROTID BLOCKAGE N CONSTIPATION N BACK / NECK PROBLEMS N ATHEROSCLEROSIS N BREAST PROBLEMS N DIALYSIS N ECZEMA N OSTEOPOROSIS N ARTHRITIS N APPENDICITIS N DIABETES, TYPE N BAD TEETH N ENT N HEARTBURN / REFLUX N AUTISM SPECTRUM DISORDER (ASD) N HEPATITIS / LIVER DISEASE N GOUT N SLEEP DISORDER N ALZHEIMER'S DISEASE N Brain Problems N HERPES N DEMENTIA N HEADACHES/MIGRAINES N SEIZURES/EPILEPSY N VASCULAR DISEASE N PACEMAKER N Blood Disorder N DIZZINESS N HEART DISEASE/HEART PROBLEMS N KIDNEY DISEASE N MULTIPLE SCLEROSIS N CARDIAC ARRHYTHMIA N CANCER: SPECIFY Y ATRIAL FIBRILLATION N Gall Stones N PULMONARY EMBOLISM N AUTOIMMUNE DISEASE N Immunizations Vaccine Type Date Status Note Provider Nam e and Address Organization Details Recorded Time Influenza, split virus, quadrivalent, PF 07/21/2015 completed Not Available [facility] 4 07:19:16 Past Encounters Encounter ID Performer Location Encounter Start Date Encounter Closed Date Diagnosis/Indication Diagnosis SNOMED-CT Code Diagnosis ICD10 Code Diagnosis Note [id number] [facility] [address] [place] [address]653 1 02/04/2021 00:00:00 02/05/2021 18:19:58 [id number] [facility] [address] [place] [address] 669[address]-873 1 08/01/2021 00:00:00 08/01/2021 10:55:56 [id number] [facility] [address] [place] [address]-531 1 02/06/2022 00:00:00 02/06/2022 14:41:26 [id number] [facility] [address] [place] [address] 47162-297 1 08/07/2022 00:00:00 08/07/2022 15:07:10 [id number] Von Haq MD [facility] [address] [address] 1 02/05/2023 14:14:15 02/05/2023 15:16:30 Pure hypercholesterolemia 501792404 E78.00 [id number] Von Haq MD [facility] [address] [place] [address] 08/06/2023 14:39:56 08/06/2023 15:19:32 Pure hypercholesterolemia 684130302 E78.00 Long-term drug therapy 466779199 Z79.899 Health Concerns Section Related Observation LastModified by Organization Detai ls LastModified Time None Recorded Concern Status LastModified by Organization Details LastModified Time None Recorded Advance Directives Directive N: Payers Encounter Date Sequence Insurance Name Policy Number Policy Daigle Covered Member ID Daigle Member ID Guarantor Name 02/05/2023 1 [facility] (MEDICARE REPLACEMENT/A DVANTAGE - HMO) [id number] Matthew Orantes [id number] Matthew Orantes 08/06/2023 1 [facility] (MEDICARE REPLACEMENT/A DVANTAGE - HMO) [id number] Matthew Orantes [id number] Matthew Orantes Notes Date Note Type Note Provider Name and Address Organization Details Recorded Time 02/05/2023 text/html Hyperlipidemia taking his rosuvastatin without side effects. Varicose veins of the lower leg asymptomatic Von Haq MD [address], [place] [address], [place], [address], [email or web address] 02/05/2023 15:19:59 08/06/2023 text/html Hyperlipidemia taking his rosuvastatin without side effects. Varicose veins of the lower leg asymptomatic Von Haq MD [address], [facility] [address], [place], [address], Yedda 08/06/2023 22:53:47
== END 2024-10-06 11:35 | disposition home or self-care (01) ==
LOC: ANHSURGERY 11:42
PROVIDERS: PCP Internal Medicine; Visit Provider Surgery
DX: Z01.810 Encounter for preprocedural cardiovascular examination (principal); E78.00 Pure hypercholesterolemia, unspecified
CPT/HCPCS: 93005

== ENCOUNTER 2024-10-13 00:13 | Day surgery (SDC) | payer MEDICARE, SELFPAY ==
[2024-10-02 10:22] VITALS: BMI 23.3
--- NOTE | 2024-10-02 10:42 | PC.NURSE ---
Report to the Outpatient Waiting Room, entrance under the green pavilion located off [facility], at time ___12:00PM____ on date ___10/13/24____. Planned Procedure Time: ___2:00PM .? Time changes happen often and if your time is changed the preop area will call you the afternoon before. - You and your visitor will be asked to self-screen and do not enter if you have any COVID symptoms. Please call surgeon if you need to reschedule. - A mask is optional within the hospital at this time. Patients may have clear liquids (water, carbonated beverages, clear teas, apple juice) until 3 hours prior to surgery (11:00AM) with a maximum of 20 ounces. - No food from midnight until time of surgery and no smoking, or chewing tobacco (or any form of nicotine). No chewing gum, candy or mints. Take only the following medications with a SIP of water on the morning of surgery: NONE DO NOT STOP ANY OF YOUR OTHER PRESCRIPTION MEDICATIONS PRIOR TO SURGERY EXCEPT THE FOLLOWING Hold all vitamins and supplements for 3 days per anesthesiologist.- Date to take last dose 10/09/24 Please no make-up, nail monegasque, hairspray, perfume, deodorant, or body powder the day of surgery.? No jewelry (including any body piercings) or valuables the day of surgery, leave them at home.? Please take a shower or bath the night before, or the morning of, surgery with an antibacterial soap.? Wear comfortable, loose fitting clothing.? - Jewelry must be removed prior to entering the operating room.? Rings and piercings that are not removed may be cut off. - The hospital will not accept responsibility for valuables.? - Please leave all valuables, including medications, at home the day of surgery. If you are going home after surgery, a licensed sweeper driver must drive you home.? - NO public transportation without another adult if you receive anesthesia. - We recommend that an adult stay with you for 24 hours following discharge. - We also recommend that you do not drive, make important decision, drink alcoholic beverages, or take any drugs that were not prescribed by your health care provider for at least 24 hours after your discharge time. Follow any additional instructions given to you from your surgeon. Telephone instructions given to PATIENT and asked if any additional questions and then verbalized understanding. Patient advised to call surgeon office or pre surgery nurse liaison [phone] if any additional questions.
--- OUTSIDE RECORDS SUMMARY | 2024-10-13 00:15 | XMS_ITS | Data Portability ---
Author Organization [facility] InSample, Main Office Address [address] [place] [address] Assessment Encounter Date Assessment Date Assessment LastModified by Organization Details LastModified Time 02/05/2023 02/05/2023 Compression socks rosuvastatin blood work 6 month follow-up diet discussed exercise discussed [email or web address] Not available 02/05/2023 15:19:41 08/06/2023 08/06/2023 Continue current therapy and follow up in 6 months [email or web address] Not available 08/06/2023 22:53:29 Plan of Treatment Reminders Order Date Submit Date Provider Last Modified By Organization Details Last Modified Time Details Appointments None recorded . Lab CMP, serum or plasma 024 08/06/19 24 [facility], [address] [place], [address], 4 19:07:31 lipid panel, serum 024 08/06/19 24 [facility], [address] [place], [address], 4 19:07:57 CBC w/ auto diff 024 08/06/19 24 [facility], [address] [place], [address], 4 18:14:59 lipid panel, serum 023 02/06/20 23 [facility], [address] [place], [address], 3 19:20:59 CMP, serum or plasma 023 02/06/20 23 [facility], [address] [place], [address], 3 19:21:04 Referral None recorded . Procedures [...] aminotransfe rase 30 U/L 15-46 Not Available [facility] (Lab) [address] [place], [address], 08/01/2021 14:48:11 08/01/19 22 08/01/2021 COMPR EHENS RUI METAB OLIC PANEL GFR >60 Refer ence Range : Volant ge GFR Healt hy Adult : >60 [...] or ethni c subgr oups, such as [facility] nics. Outsi de the valid ated shayla [...] calcu lator is avail able on the [facility] websi te: [email or web address] :[email or web address] rg/pr ofess ional s/kdo qi/gf r_cal culat or Not Available [facility] (Lab) [address] [place], [address], 08/01/2021 14:48:11 08/01/19 22 08/01/2021 COMPR EHENS RUI METAB OLIC PANEL alkaline phosphatase 64 U/L 38-126 Not Available [facility] (Lab) [address] [facility] [place], [address], 08/01/2021 14:48:11 08/01/19 22 08/01/2021 COMPR EHENS RUI METAB OLIC PANEL alanine aminotransfe rase 28 U/L 0-50 Not Available [facility] (Lab) [address] [place], [address], 08/01/2021 14:48:11 08/01/19 22 08/01/2021 COMPR EHENS RUI METAB OLIC PANEL bilirubin, total 0.40 mg/dL 0.20-1 .30 Not Available [facility] (Lab) [address] [place], [address], 08/01/2021 14:48:11 08/01/19 22 08/01/2021 COMPR EHENS RUI METAB OLIC PANEL calcium 9.3 mg/dL 8.4-10 .2 Not Available [facility] (Lab) [address] [place], [address], 08/01/2021 14:48:11 08/01/19 22 08/01/2021 COMPR EHENS RUI METAB OLIC PANEL total protein 7.0 g/dL 6.3-8. 2 Not Available [facility] (Lab) [address] [place], [address], 08/01/2021 14:48:11 08/01/19 22 08/01/2021 COMPR EHENS RUI METAB OLIC PANEL albumin 4.2 g/dL 3.0-4. 4 Not Available [facility] (Lab) [address] [place], [address], 08/01/2021 14:48:11 08/01/19 22 08/01/2021 COMPR EHENS RUI METAB OLIC PANEL globulin 2.8 g/dL 2.6-4. 2 Not Available [facility] (Lab) [address] [place], [address], 08/01/2021 14:48:11 08/01/19 22 08/01/2021 COMPR EHENS RUI METAB OLIC PANEL A/G ratio 1.5 ratio 1.0-2. 0 Not Available [facility] (Lab) [address] [place], [address], 08/01/2021 14:48:11 08/01/19 22 08/01/2021 COMPR EHENS RUI METAB OLIC PANEL carbon dioxide 28 mmol/ L 22-30 Not Available [facility] (Lab) [address] [facility] [place], [address], 08/01/2021 14:48:11 08/01/19 22 08/01/2021 COMPR EHENS RUI METAB OLIC PANEL sodium 136 mmol/ L 137-14 5 low Not Available [facility] (Lab) [address] [place], [address], 08/01/2021 14:48:11 08/01/19 22 08/01/2021 COMPR EHENS RUI METAB OLIC PANEL potassium 5.2 mmol/ L 3.5-5. 1 high Not Available [facility] (Lab) [address] [place], [address], 08/01/2021 14:48:11 08/01/19 22 08/01/2021 COMPR EHENS RUI METAB OLIC PANEL chloride 103 mmol/ L 98-107 Not Available [facility] (Lab) [address] [place], [address], 08/01/2021 14:48:11 08/01/19 22 08/01/2021 COMPR EHENS RUI METAB OLIC PANEL agap 10.2 mmol/ L 14-22 low Not Available [facility] (Lab) [address] [place], [address], 08/01/2021 14:48:11 08/01/19 22 08/01/2021 COMPR EHENS RUI METAB OLIC PANEL glucose 109 mg/dL 70-99 high Not Available [facility] (Lab) [address] [place], [address], 08/01/2021 14:48:11 08/01/19 22 08/01/2021 COMPR EHENS RUI METAB OLIC PANEL BUN 10 mg/dL 8-19 Not Available [facility] (Lab) [address] [place], [address], 08/01/2021 14:48:11 08/01/19 22 08/01/2021 COMPR EHENS RUI METAB OLIC PANEL creatinine 0.82 mg/dL 0.66-1 .25 Not Available [facility] (Lab) [address] [place], [address], 08/01/2021 14:48:11 08/01/19 22 08/01/2021 LIPID PANEL cholesterol 174 mg/dL 140-19 9 NIH ERIC NSUS RECOM MENDA TION FOR MARY STERO L: ADULT CHILD LOW RISK: <200 <170 BORDE RLINE : <200- 239 ----- HIGH RISK: >240 >200 Not Available [facility] (Lab) [address] [place], [address], 08/01/2021 14:48:16 08/01/1908/01/2021 LIPID PANEL triglyceride s 70 mg/dL 0-150 NIH ERIC NSUS REPOR T RECOM MENDA TION FOR TRIGL YCERI JOSS: ADULT CHILD LOW RISK: <150 ----- BODER LINE: 150-1 99 ----- HIGH RISK: >200 ----- Not Available [facility] (Lab) [address] [place], [address], 08/01/2021 14:48:16 08/01/19 22 08/01/2021 LIPID PANEL HDL cholesterol 58 mg/dL 40- Not Available [facility] (Lab) [address] [place], [address], 08/01/2021 14:48:16 08/01/19 22 08/01/2021 LIPID PANEL [...] WILL NOT BE REPOR LEODAN. Not Available [facility] (Lab) [address] [place], [address], 08/01/2021 14:48:16 02/07/20 22 02/06/2022 COMPR EHENS RUI METAB OLIC PANEL alanine aminotransfe rase 18 U/L 0-50 Not Available [facility] (Lab) [address] [place], [address], 02/06/2022 15:11:05 02/07/20 22 02/06/2022 COMPR EHENS RUI METAB OLIC PANEL aspartate aminotransfe rase 25 U/L 15-46 Not Available [facility] (Lab) [address] [place], [address], 02/06/2022 15:11:05 02/07/20 22 02/06/2022 COMPR EHENS RUI METAB OLIC PANEL bilirubin, total 0.50 mg/dL 0.20-1 .30 Not Available [facility] (Lab) [address] [place], [address], 02/06/2022 15:11:05 02/07/20 22 02/06/2022 COMPR EHENS RUI METAB OLIC PANEL calcium 9.5 mg/dL 8.4-10 .2 Not Available [facility] (Lab) [address] [place], [address], 02/06/2022 15:11:05 02/07/20 22 02/06/2022 COMPR EHENS RUI METAB OLIC PANEL total protein 7.0 g/dL 6.3-8. 2 Not Available [facility] (Lab) [address] [place], [address], 02/06/2022 15:11:05 02/07/20 22 02/06/2022 COMPR EHENS RUI METAB OLIC PANEL albumin 4.4 g/dL 3.0-4. 4 Not Available [facility] (Lab) [address] [place], [address], 02/06/2022 15:11:05 02/07/20 22 02/06/2022 COMPR EHENS RUI METAB OLIC PANEL globulin 2.6 g/dL 2.6-4. 2 Not Available [facility] (Lab) [address] [place], [address], 02/06/2022 15:11:05 02/07/20 22 02/06/2022 COMPR EHENS RUI METAB OLIC PANEL A/G ratio 1.7 ratio 1.0-2. 0 Not Available [facility] (Lab) [address] [place], [address], 02/06/2022 15:11:05 02/07/20 22 02/06/2022 COMPR EHENS RUI METAB OLIC PANEL carbon dioxide 22 mmol/ L 22-30 Not Available [facility] (Lab) [address] [place], [address], 02/06/2022 15:11:05 02/07/20 22 02/06/2022 COMPR EHENS RUI METAB OLIC PANEL sodium 135 mmol/ L 137-14 5 low Not Available [facility] (Lab) [address] [place], [address], 02/06/2022 15:11:05 02/07/20 22 02/06/2022 COMPR EHENS RUI METAB OLIC PANEL potassium 4.5 mmol/ L 3.5-5. 1 Not Available [facility] (Lab) [address] [place], [address], 02/06/2022 15:11:05 02/07/20 22 02/06/2022 COMPR EHENS RUI METAB OLIC PANEL chloride 106 mmol/ L 98-107 Not Available [facility] (Lab) [address] [place], [address], 02/06/2022 15:11:05 02/07/20 22 02/06/2022 COMPR EHENS RUI METAB OLIC PANEL anion gap 11.5 mmol/ L 14-22 low Not Available [facility] (Lab) [address] [place], [address], 02/06/2022 15:11:05 02/07/20 22 02/06/2022 COMPR EHENS RUI METAB OLIC PANEL glucose 103 mg/dL 70-99 high Not Available [facility] (Lab) [address] [place], [address], 02/06/2022 15:11:05 02/07/20 22 02/06/2022 COMPR EHENS RUI METAB OLIC PANEL BUN 12 mg/dL 8-19 Not Available [facility] (Lab) [address] [place], [address], 02/06/2022 15:11:05 02/07/20 22 02/06/2022 COMPR EHENS RUI METAB OLIC PANEL creatinine 0.81 mg/dL 0.66-1 .25 Not Available [facility] (Lab) [address] [place], [address], 02/06/2022 15:11:05 02/07/20 22 02/06/2022 COMPR EHENS RUI METAB OLIC PANEL GFR >60 Refer ence Range : Volant ge GFR Healt hy Adult : >60 mL/mi n/1.7 3 m2 Chron ic Kidne y Disea se: 15-60 mL/mi n/1.7 3 m2 Kidne y Failu re: <15/m L/min /1.73 m2 www.n iddk. [facility].g ov The MDRD study equat ion has [...] calcu lator is avail able on the [facility] websi te: https :[email or web address] rg/pr ofess ional s/kdo qi/gf r_cal culat or Not Available [facility] (Lab) [address] [place], [address], 02/06/2022 15:11:05 02/07/20 22 02/06/2022 COMPR EHENS RUI METAB OLIC PANEL alkaline phosphatase 56 U/L 38-126 Not Available [facility] (Lab) [address] [place], [address], 02/06/2022 15:11:05 02/07/20 22 02/06/2022 LIPID PANEL cholesterol 124 mg/dL 140-19 9 low NIH ERIC NSUS RECOM MENDA TION FOR MARY STERO L: ADULT CHILD LOW RISK: <200 <170 BORDE RLINE : <200- 239 ----- HIGH RISK: >240 >200 Not Available [facility] (Lab) [address] [place], [address], 02/06/2022 15:10:59 02/07/20 22 02/06/2022 LIPID PANEL triglyceride s 46 mg/dL 0-150 NIH ERIC NSUS REPOR T RECOM MENDA TION FOR TRIGL YCERI JOSS: ADULT CHILD LOW RISK: <150 ----- BODER LINE: 150-1 99 ----- HIGH RISK: >200 ----- Not Available [facility] (Lab) [address] [place], [address], 02/06/2022 15:10:59 02/07/20 22 02/06/2022 LIPID PANEL HDL cholesterol 55 mg/dL 40- Not Available [facility] (Lab) [address] [place], [address], 02/06/2022 15:10:59 02/07/20 22 02/06/2022 LIPID PANEL [...] WILL NOT BE REPOR LEODAN. Not Available [facility] (Lab) [address] [place], [address], 02/06/2022 15:10:59 02/06/20 23 02/05/2023 LIPID PANEL cholesterol 138 mg/dL 140-19 9 low NIH ERIC NSUS RECOM MENDA TION FOR MARY STERO L: ADULT CHILD LOW RISK: <200 <170 BORDE RLINE : <200- 239 ----- HIGH RISK: >240 >200 Not Available [facility] (Lab) [address] [place], [address], 02/05/2023 19:20:59 02/06/20 23 02/05/2023 LIPID PANEL triglyceride s 89 mg/dL 0-150 NIH ERIC NSUS REPOR T RECOM MENDA TION FOR TRIGL YCERI JOSS: ADULT CHILD LOW RISK: <150 ----- BODER LINE: 150-1 99 ----- HIGH RISK: >200 ----- Not Available [facility] (Lab) [address] [place], [address], 02/05/2023 19:20:59 02/06/20 23 02/05/2023 LIPID PANEL HDL cholesterol 61 mg/dL 40- Not Available [facility] (Lab) [address] [place], [address], 02/05/2023 19:20:59 02/06/20 23 02/05/2023 LIPID PANEL [...] WILL NOT BE REPOR LEODAN. Not Available [facility] (Lab) [address] [place], [address], 02/05/2023 19:20:59 02/06/20 23 02/05/2023 COMPR EHENS RUI METAB OLIC PANEL sodium 137 mmol/ L 137-14 5 Not Available [facility] (Lab) [address] [place], [address], 02/05/2023 19:21:04 02/06/20 23 02/05/2023 COMPR EHENS RUI METAB OLIC PANEL potassium 5.3 mmol/ L 3.5-5. 1 high Not Available [facility] (Lab) [address] [place], [address], 02/05/2023 19:21:04 02/06/20 23 02/05/2023 COMPR EHENS RUI METAB OLIC PANEL chloride 101 mmol/ L 98-107 Not Available [facility] (Lab) [address] [place], [address], 02/05/2023 19:21:04 02/06/20 23 02/05/2023 COMPR EHENS RUI METAB OLIC PANEL carbon dioxide 27 mmol/ L 22-30 Not Available [facility] (Lab) [address] [place], [address], 02/05/2023 19:21:04 02/06/20 23 02/05/2023 COMPR EHENS RUI METAB OLIC PANEL anion gap 14.3 mmol/ L 14-22 Not Available [facility] (Lab) [address] [place], [address], 02/05/2023 19:21:04 02/06/20 23 02/05/2023 COMPR EHENS RUI METAB OLIC PANEL glucose 96 mg/dL 70-99 Not Available [facility] (Lab) [address] [place], [address], 02/05/2023 19:21:04 02/06/20 23 02/05/2023 COMPR EHENS RUI METAB OLIC PANEL BUN 11 mg/dL 8-19 Not Available [facility] (Lab) [address] [place], [address], 02/05/2023 19:21:04 02/06/20 23 02/05/2023 COMPR EHENS RUI METAB OLIC PANEL creatinine 0.81 mg/dL 0.66-1 .25 Not Available [facility] (Lab) [address] [place], [address], 02/05/2023 19:21:04 02/06/20 23 02/05/2023 COMPR EHENS RUI METAB OLIC PANEL GFR >60 Refer ence Range : Volant ge GFR Healt hy Adult : >60 [...] calcu lator is avail able on the [facility] websi te: https :[email or web address] rg/pr ofess ional s/kdo qi/gf r_cal culat or Not Available [facility] (Lab) [address] [place], [address], 02/05/2023 19:21:04 02/06/20 23 02/05/2023 COMPR EHENS RUI METAB OLIC PANEL alkaline phosphatase 57 U/L 38-126 Not Available [facility] (Lab) [address] [place], [address], 02/05/2023 19:21:04 02/06/20 23 02/05/2023 COMPR EHENS RUI METAB OLIC PANEL alanine aminotransfe rase 25 U/L 0-50 Not Available [facility] (Lab) [address] [place], [address], 02/05/2023 19:21:04 02/06/20 23 02/05/2023 COMPR EHENS RUI METAB OLIC PANEL aspartate aminotransfe rase 28 U/L 15-46 Not Available [facility] (Lab) [address] [place], [address], 02/05/2023 19:21:04 02/06/20 23 02/05/2023 COMPR EHENS RUI METAB OLIC PANEL bilirubin, total 0.40 mg/dL 0.20-1 .30 Not Available [facility] (Lab) [address] [place], [address], 02/05/2023 19:21:04 02/06/20 23 02/05/2023 COMPR EHENS RUI METAB OLIC PANEL calcium 9.7 mg/dL 8.4-10 .2 Not Available [facility] (Lab) [address] [place], [address], 02/05/2023 19:21:04 02/06/20 23 02/05/2023 COMPR EHENS RUI METAB OLIC PANEL total protein 7.3 g/dL 6.3-8. 2 Not Available [facility] (Lab) [address] [place], [address], 02/05/2023 19:21:04 02/06/20 23 02/05/2023 COMPR EHENS RUI METAB OLIC PANEL albumin 4.4 g/dL 3.0-4. 4 Not Available [facility] (Lab) [address] [place], [address], 02/05/2023 19:21:04 02/06/20 23 02/05/2023 COMPR EHENS RUI METAB OLIC PANEL globulin 2.9 g/dL 2.6-4. 2 Not Available [facility] (Lab) [address] [place], [address], 02/05/2023 19:21:04 02/06/20 23 02/05/2023 COMPR EHENS RUI METAB OLIC PANEL A/G ratio 1.5 ratio 1.0-2. 0 Not Available [facility] (Lab) [address] [place], [address], 02/05/2023 19:21:04 08/06/19 24 08/06/2023 CBC/C OMPLE TE BLD COUNT W/DIF F white blood cells 7.1 x10'3 /uL 4.2-10 .8 Not Available [facility] (Lab) [address] [place], [address], 08/06/2023 18:14:59 08/06/19 24 08/06/2023 CBC/C OMPLE TE BLD COUNT W/DIF F red blood cells 4.63 x10'6 /uL 4.10-5 .80 Not Available [facility] (Lab) [address] [place], [address], 08/06/2023 18:14:59 08/06/19 24 08/06/2023 CBC/C OMPLE TE BLD COUNT W/DIF F hemoglobin 14.7 g/dL 13.2-1 7.0 Not Available [facility] (Lab) [address] [place], [address], 08/06/2023 18:14:59 08/06/19 24 08/06/2023 CBC/C OMPLE TE BLD COUNT W/DIF F hematocrit 43.6 % 39.3-5 0.0 Not Available [facility] (Lab) [address] [place], [address], 08/06/2023 18:14:59 08/06/19 24 08/06/2023 CBC/C OMPLE TE BLD COUNT W/DIF F mean red cell volume 94.2 fL 80.0-9 7.0 Not Available [facility] (Lab) [address] [place], [address], 08/06/2023 18:14:59 08/06/19 24 08/06/2023 CBC/C OMPLE TE BLD COUNT W/DIF F mean red cell hemoglobin 31.7 pg 27.0-3 3.0 Not Available [facility] (Lab) [address] [place], [address], 08/06/2023 18:14:59 08/06/19 24 08/06/2023 CBC/C OMPLE TE BLD COUNT W/DIF F mean RBC HGB concentratio n 33.7 g/dL 31.0-3 6.0 Not Available [facility] (Lab) [address] [place], [address], 08/06/2023 18:14:59 08/06/19 24 08/06/2023 CBC/C OMPLE TE BLD COUNT W/DIF F red cell distribution width 13.2 % 11.8-1 5.5 Not Available [facility] (Lab) [address] [place], [address], 08/06/2023 18:14:59 08/06/19 24 08/06/2023 CBC/C OMPLE TE BLD COUNT W/DIF F platelets 232 x10'3 /uL 150-40 0 Not Available [facility] (Lab) [address] [place], [address], 08/06/2023 18:14:59 08/06/19 24 08/06/2023 CBC/C OMPLE TE BLD COUNT W/DIF F mean platelet volume 10.8 fL 9.0-12 .4 Not Available [facility] (Lab) [address] [place], [address], 08/06/2023 18:14:59 08/06/19 24 08/06/2023 CBC/C OMPLE TE BLD COUNT W/DIF F neutrophils 46.7 % 39.0-7 2.0 Not Available [facility] (Lab) [address] [place], [address], 08/06/2023 18:14:59 08/06/19 24 08/06/2023 CBC/C OMPLE TE BLD COUNT W/DIF F lymphocytes 39.8 % 16.0-4 7.0 Not Available [facility] (Lab) [address] [facility] [place], [address], 08/06/2023 18:14:59 08/06/19 24 08/06/2023 CBC/C OMPLE TE BLD COUNT W/DIF F monocytes 9.6 % 5.0-12 .0 Not Available [facility] (Lab) [address] [facility] [place], [address], 08/06/2023 18:14:59 08/06/19 24 08/06/2023 CBC/C OMPLE TE BLD COUNT W/DIF F eosinophils 3.2 % 1.0-7. 0 Not Available [facility] (Lab) [address] [place], [address], 08/06/2023 18:14:59 08/06/19 24 08/06/2023 CBC/C OMPLE TE BLD COUNT W/DIF F basophils 0.4 % 0.0-2. 0 Not Available [facility] (Lab) [address] [place], [address], 08/06/2023 18:14:59 08/06/19 24 08/06/2023 CBC/C OMPLE TE BLD COUNT W/DIF F immature granulocytes 0.3 % 0.00-0 .50 Not Available [facility] (Lab) [address] [place], [address], 08/06/2023 18:14:59 08/06/19 24 08/06/2023 CBC/C OMPLE TE BLD COUNT W/DIF F neutrophils, absolute count 3.32 x10'3 /uL 1.5-8. 0 Not Available [facility] (Lab) [address] [place], [address], 08/06/2023 18:14:59 08/06/19 24 08/06/2023 CBC/C OMPLE TE BLD COUNT W/DIF F lymphocytes, absolute count 2.83 x10'3 /uL 1.07-3 .43 Not Available [facility] (Lab) [address] [place], [address], 08/06/2023 18:14:59 08/06/19 24 08/06/2023 CBC/C OMPLE TE BLD COUNT W/DIF F monocytes, absolute count 0.68 x10'3 /uL 0.29-0 .99 Not Available [facility] (Lab) [address] [place], [address], 08/06/2023 18:14:59 08/06/19 24 08/06/2023 CBC/C OMPLE TE BLD COUNT W/DIF F eosinophils, absolute count 0.23 x10'3 /uL 0.02-0 .53 Not Available [facility] (Lab) [address] [place], [address], 08/06/2023 18:14:59 08/06/19 24 08/06/2023 CBC/C OMPLE TE BLD COUNT W/DIF F basophils, absolute count 0.03 x10'3 /uL 0.01-0 .08 Not Available [facility] (Lab) [address] [place], [address], 08/06/2023 18:14:59 08/06/19 24 08/06/2023 CBC/C OMPLE TE BLD COUNT W/DIF F immature granulocytes ,absolute 0.02 x10'3 /uL 0.00-0 .05 Not Available [facility] (Lab) [address] [place], [address], 08/06/2023 18:14:59 08/06/19 24 08/06/2023 CBC/C OMPLE TE BLD COUNT W/DIF F nucleated red blood cells 0.0 % -0 Not Available [facility] (Lab) [address] [place], [address], 08/06/2023 18:14:59 08/06/19 24 08/06/2023 CBC/C OMPLE TE BLD COUNT W/DIF F NRBC# 0.00 x10'3 /uL Not Available [facility] (Lab) [address] [place], [address], 08/06/2023 18:14:59 08/06/19 24 08/06/2023 COMPR EHENS RUI METAB OLIC PANEL sodium 134 mmol/ L 137-14 5 low Not Available [facility] (Lab) [address] [place], [address], 08/06/2023 19:07:53 08/06/19 24 08/06/2023 COMPR EHENS RUI METAB OLIC PANEL potassium 4.5 mmol/ L 3.5-5. 1 Not Available [facility] (Lab) [address] [place], [address], 08/06/2023 19:07:53 08/06/19 24 08/06/2023 COMPR EHENS RUI METAB OLIC PANEL chloride 101 mmol/ L 98-107 Not Available [facility] (Lab) [address] [place], [address], 08/06/2023 19:07:53 08/06/19 24 08/06/2023 COMPR EHENS RUI METAB OLIC PANEL carbon dioxide 26 mmol/ L 22-30 Not Available [facility] (Lab) [address] [place], [address], 08/06/2023 19:07:53 08/06/19 24 08/06/2023 COMPR EHENS RUI METAB OLIC PANEL anion gap 11.5 mmol/ L 14-22 low Not Available [facility] (Lab) [address] [place], [address], 08/06/2023 19:07:53 08/06/19 24 08/06/2023 COMPR EHENS RUI METAB OLIC PANEL glucose 103 mg/dL 70-99 high Not Available [facility] (Lab) [address] [place], [address], 08/06/2023 19:07:53 08/06/19 24 08/06/2023 COMPR EHENS RUI METAB OLIC PANEL BUN 12 mg/dL 8-19 Not Available [facility] (Lab) [address] [place], [address], 08/06/2023 19:07:53 08/06/19 24 08/06/2023 COMPR EHENS RUI METAB OLIC PANEL creatinine 0.81 mg/dL 0.66-1 .25 Not Available [facility] (Lab) [address] [place], [address], 08/06/2023 19:07:53 08/06/19 24 08/06/2023 COMPR EHENS RUI METAB OLIC PANEL GFR >60 Refer ence Range : [place] ge GFR Healt hy Adult : >60 [...] calcu latdomonique is avail able on the [facility] websi te: [email or web address] [email or web address]/gf r_cal culat or Not Available [facility] (Lab) [address] [place], [address], 08/06/2023 19:07:53 08/06/19 24 08/06/2023 COMPR EHENS RUI METAB OLIC PANEL alkaline phosphatase 67 U/L 38-126 Not Available [facility] (Lab) [address] [place], [address], 08/06/2023 19:07:53 08/06/19 24 08/06/2023 COMPR EHENS RUI METAB OLIC PANEL alanine aminotransfe rase 29 U/L 0-50 Not Available [facility] (Lab) [address] [place], [address], 08/06/2023 19:07:53 08/06/19 24 08/06/2023 COMPR EHENS RUI METAB OLIC PANEL aspartate aminotransfe rase 32 U/L 15-46 Not Available [facility] (Lab) [address] [place], [address], 08/06/2023 19:07:53 08/06/19 24 08/06/2023 COMPR EHENS RUI METAB OLIC PANEL bilirubin, total 0.30 mg/dL 0.20-1 .30 Not Available [facility] (Lab) [address] [place], [address], 08/06/2023 19:07:53 08/06/19 24 08/06/2023 COMPR EHENS RUI METAB OLIC PANEL calcium 9.8 mg/dL 8.4-10 .2 Not Available [facility] (Lab) [address] [place], [address], 08/06/2023 19:07:53 08/06/1908/06/2023 COMPR EHENS RUI METAB OLIC PANEL total protein 7.4 g/dL 6.3-8. 2 Not Available [facility] (Lab) [address] [place], [address], 08/06/2023 19:07:53 08/06/19 24 08/06/2023 COMPR EHENS RUI METAB OLIC PANEL albumin 4.4 g/dL 3.0-4. 4 Not Available [facility] (Lab) [address] [place], [address], 08/06/2023 19:07:53 08/06/19 24 08/06/2023 COMPR EHENS RUI METAB OLIC PANEL globulin 3.0 g/dL 2.6-4. 2 Not Available [facility] (Lab) [address] [place], [address], 08/06/2023 19:07:53 08/06/1908/06/2023 COMPR EHENS RUI METAB OLIC PANEL A/G ratio 1.5 ratio 1.0-2. 0 Not Available [facility] (Lab) [address] [place], [address], 08/06/2023 19:07:53 08/06/1908/06/2023 LIPID PANEL cholesterol 157 mg/dL 140-19 9 NIH ERIC NSUS RECOM MENDA TION FOR MARY STERO L: ADULT CHILD LOW RISK: <200 <170 BORDE RLINE : <200- 239 ----- HIGH RISK: >240 >200 Not Available [facility] (Lab) [address] [place], [address], 08/06/2023 19:07:57 08/06/1908/06/2023 LIPID PANEL triglyceride s 77 mg/dL 0-150 NIH ERIC NSUS REPOR T RECOM MENDA TION FOR TRIGL YCERI JOSS: ADULT CHILD LOW RISK: <150 ----- BODER LINE: 150-1 99 ----- HIGH RISK: >200 ----- Not Available [facility] (Lab) [address] [place], [address], 08/06/2023 19:07:57 08/06/19 24 08/06/2023 LIPID PANEL HDL cholesterol 60 mg/dL 40- Not Available [facility] (Lab) [address] [place], [address], 08/06/2023 19:07:57 08/06/1908/06/2023 LIPID PANEL LDL cholesterol, [...] WILL NOT BE REPOR LEODAN. Not Available [facility] (Lab) [address] [place], [address], 08/06/2023 19:07:57 Result Notes None recorded. Problems Name Problem SNOMED Code Status Onset Date Resolution Date Notes Provider Name and Address Organization Details Recorded Time Pure hypercholeste rolemia 138641412 Active Not Available [facility] 4 07:19:16 Malaise and fatigue 017412537 Active Not Available [facility] 4 07:19:16 Varicose veins of lower extremity 30931076 Active Not Available [facility] 4 07:19:16 Chronic rhinitis 77979152 Active Not Available [facility] 4 07:19:16 Problem Notes None recorded. Procedures Surgical History Date Name Laterality Status Provider Name and Address Organization Details Recorded Time 11/14/19 excision of skin carcinoma completed Not Available [facility] 09/27/2022 05:56:31 08/16/19 17 Colonoscopy completed Not Available [facility] 09/28/19 23 05:56:31 08/20/19 07 Colonoscopy completed Not Available [facility] 09/28/19 23 05:56:31 Imaging Results None recorded. [...] kg/m2 182.88 cm 72 /min 97.3 [degF] 84753.9 6 g 120 mm[Hg] 78 mm[Hg] Not Available [facility] 3 05:57:31 Date Recorded Body mass index (BMI) Body height Heart rate Body temperature Body weight Systolic blood pressure Diastolic blood pressure Provider Name and Address Organization Details Last Updated DateTime 2 24.1 kg/m2 182.88 cm 72 /min 97.3 [degF] 08136.4 4 g 122 mm[Hg] 80 mm[Hg] Not Available [facility] 3 05:57:31 Date Recorded Body mass index (BMI) Body height Heart rate Body temperature Body weight Systolic blood pressure Diastolic blood pressure Provider Name and Address Organization Details Last Updated DateTime 3 24.5 kg/m2 182.88 cm 72 /min 98.2 [degF] 71943.2 2 g 120 mm[Hg] 72 mm[Hg] Not Available [facility] 3 05:57:32 Date Recorded Body height Body mass index (BMI) Body weight Body temperature Heart rate Systolic blood pressure Diastolic blood pressure Provider Name and Address Organization Details Last Updated DateTime 3 182.88 cm 24 kg/m2 32073.8 5 g 98.8 [degF] 96 /min 116 mm[Hg] 70 mm[Hg] [facility] 3 14:19:51 Date Recorded Body height Body mass index (BMI) Body weight Body temperature Heart rate Systolic blood pressure Diastolic blood pressure Provider Name and Address Organization Details Last Updated DateTime 4 182.88 cm 25.8 kg/m2 22414.5 5 g 98.3 [degF] 76 /min 116 mm[Hg] 74 mm[Hg] [facility]ANE [facility]der [facility] 4 14:48:56 Social History Question Answer Notes LastModified by Organization Details LastModified Time Tobacco Smoking Status Current Every Day Smoker cigarillo s, 5/day Not Available [facility] 09/27/2022 05:53:56 Do You Have An Advance Directive? No MIGRATION.030 [id number] Information not available 09/27/2022 What Is Your Level Of Alcohol Consumption? None MIGRATION.030 407697 Information not available 09/27/2022 Do You Wear A Helmet When Biking? No MIGRATION.030 777336 Information not available 09/27/2022 Are You Blind Or Do You Have Difficulty Seeing? Yes Wears Glasses MIGRATION.030 580999 Information not available 09/27/2022 What Is Your Level Of Caffeine Consumption? Moderate MIGRATION.0301 737908 Information not available 09/27/2022 How Much Tobacco Do You Chew? None MIGRATION.0301 [id number] Information not available 09/27/2022 In The 14 Days Before Symptom Onset, Have You Had Close Contact With A Laboratory-confi rmed COVID-19 While That Case Was Ill? No MIGRATION.030 399082 Information not available 09/27/2022 In The 14 Days Before Symptom Onset, Have You Had Close Contact With A Person Who Is Under Investigation For COVID-19 While That Person Was Ill? No MIGRATION.0301 293038 Information not available 09/27/2022 Are You Deaf Or Do You Have Serious Difficulty Hearing? No MIGRATION.0301 351478 Information not available 09/27/2022 What Type Of Diet Are You Following? REGULAR MIGRATION.030 101312 Information not available 09/27/2022 Which Illicit Or Recreational Drugs Have You Used? None MIGRATION.030 978034 Information not available 09/27/2022 Do You Or Have You Ever Used E-cigarettes Or Vape? Never Used Electronic Cigarettes MIGRATION.030 110470 Information not available 09/27/2022 What Is The Highest Grade Or Level Of School You Have Completed Or The Highest Degree You Have Received? 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 No MIGRATION.0301 978153 Information not available 09/27/2022 What Is The Fluoride Status Of Your Home? Unknown MIGRATION.0301 323326 Information not available 09/27/2022 Are There Any Guns Present In Your Home? No MIGRATION.0301 789345 Information not available 09/27/2022 Do You Use Insect Repellent Routinely? No MIGRATION.0301 604300 Information not available 09/27/2022 Where Do You Live? [place]House MIGRATION.0301 084104 Information not available 09/27/2022 Do You Have A Medical Power Of Computer Console Operator? No MIGRATION.0301 513004 Information not available 09/27/2022 What Was The Date Of Your Most Recent Tobacco Screening? 08/06/2023 Information not available 08/06/2023 Do You Have Any Pets? No MIGRATION.0301 024562 Information not available 09/27/2022 What Is Your Relationship Status? Single MIGRATION.0301 213733 Information not available 09/27/2022 Do You Use Your Seat Belt Or Car Seat Routinely? Yes MIGRATION.0301 121550 Information not available 09/27/2022 Do You Have Smoke And Carbon Monoxide Detectors In Your Home? Yes MIGRATION.0301 065545 Information not available 09/27/2022 At What Age Did You Start Smoking Tobacco? 45 MIGRATION.0301 422582 Information not available 09/27/2022 Are You Passively Exposed To Smoke? Yes MIGRATION.0301 069999 Information not available 09/27/2022 Do You Or Have You Ever Used Smokeless Tobacco? Never Used Smokeless Tobacco MIGRATION.0301 985984 Information not available 09/27/2022 Are There Any Smokers In Your House? Yes MIGRATION.0301 219256 Information not available 09/27/2022 How Much Tobacco Do You Smoke? 0.5 PPD MIGRATION.0301 525146 Information not available 09/27/2022 What Types Of Sporting Activities Do You Participate In? None MIGRATION.0301 397186 Information not available 09/27/2022 Do You Feel Stressed (tense, Restless, Nervous, Or Anxious, Or Unable To Sleep At Night)? [id number] MIGRATION.0301 603962 Information not available 09/27/2022 Do You Use Any Illicit Or Recreational Drugs? No MIGRATION.0301 526118 Information not available 09/27/2022 Do You Use Sunscreen Routinely? No MIGRATION.0301 323670 Information not available 09/27/2022 Have You Recently Traveled Abroad? No MIGRATION.0301 030841 Information not available 09/27/2022 Do You Have Any Dietary Restrictions? No MIGRATION.0301 020138 Information not available 09/27/2022 Do You Or Have You Ever Used Any Other Forms Of Tobacco Or Nicotine? No MIGRATION.0301 942776 Information not available 09/27/2022 Sex: Male Functional Status Question Answer Note LastModified by Organizat ion Details LastModified Time Do you have difficulty walking or climbing stairs? No MIGRATION.5560914 026 Information not available 09/27/2022 Do you have transportation difficulties? No MIGRATION.7371793 026 Information not available 09/27/2022 Are you able to walk? YESWOREST MIGRATION.1989207 026 Information not available 09/27/2022 Do you have difficulty doing errands alone? No MIGRATION.1748926 026 Information not available 09/27/2022 Are you able to care for yourself? Yes MIGRATION.7657640 026 Information not available 09/27/2022 Do you have difficulty dressing or bathing? No MIGRATION.6930440 026 Information not available 09/27/2022 What is your exercise level? None MIGRATION.7541565 026 Information not available 09/27/2022 Mental Status Question Answer Note LastModified by Organizat ion Details LastModified Time Do you have difficulty concentrating, remembering or making decisions? No MIGRATION.555498665 6 Information not available 09/27/2022 Family History Relationship Description Onset Age of this Age Resolved Age Notes LastModified by Organization Details LastModified Time Mother Dementia 72 MIGRATION.476 [id number] Not available 09/27/2022 05:56:33 Father General health good MIGRATION.914 [id number] Not available 09/27/2022 05:56:33 Medical History Condition Response NERVE DISEASE N BLINDNESS N RHEUMATIC FEVER N KIDNEY STONES N BLADDER PROBLEMS N MRSA N OTHER # 1 N POLIO N LUNG DISEASE/DISORDER N RADIATION / CHEMOTHERAPY N COPD N Other # 2 N BLOOD DISEASES N EAR OR HEARING PROBLEMS N MUMPS N DEPRESSION (INCLUDING POST ) N BOWEL PROBLEMS N STROKE/TIA N ULCERS N BENIGN PROSTATIC HYPERPLASIA N MEASLES N MYOCARDIAL INFARCTION N OBESITY N GERD/NAUSEA N ANEURYSM N URINARY/BLADDER/KIDNEY PROBLEMS N CORONARY ARTERY DISEASE (CAD) N ADDICTION CONCERNS N Impotence N ENDOMETRIOSIS N USE OF BLOOD THINNERS N SKIN [...] APNEA N CHICKENPOX N INFECTIOUS DISEASE N PROSTATE N HEART ARRHYTHMIA N INSOMNIA N HIGH CHOLESTEROL / HYPERLIPIDEMIA Y HYPERTHYROIDISM N EYE PROBLEMS N EDEMA N CHRONIC PAIN SYNDROME N HYPOTHYROIDISM N CONSTIPATION N CAROTID BLOCKAGE N BACK / NECK PROBLEMS N ATHEROSCLEROSIS N BREAST PROBLEMS N DIALYSIS N ECZEMA N OSTEOPOROSIS N ARTHRITIS N APPENDICITIS N DIABETES, TYPE N BAD TEETH N ENT N HEARTBURN / REFLUX N AUTISM SPECTRUM DISORDER (ASD) N HEPATITIS / LIVER DISEASE N GOUT N SLEEP DISORDER N ALZHEIMER'S DISEASE N Brain Problems N HERPES N DEMENTIA N SEIZURES/EPILEPSY N HEADACHES/MIGRAINES N VASCULAR DISEASE N PACEMAKER N Blood Disorder N DIZZINESS N KIDNEY DISEASE N HEART DISEASE/HEART PROBLEMS N MULTIPLE SCLEROSIS N CARDIAC ARRHYTHMIA N CANCER: SPECIFY Y Gall Stones N ATRIAL FIBRILLATION N PULMONARY EMBOLISM N AUTOIMMUNE DISEASE N Immunizations Vaccine Type Date Status Note Provider Nam e and Address Organization Details Recorded Time Influenza, split virus, quadrivalent, PF 07/21/2015 completed Not Available [facility] 4 07:19:16 Past Encounters Encounter ID Performer Location Encounter Start Date Encounter Closed Date Diagnosis/Indication Diagnosis SNOMED-CT Code Diagnosis ICD10 Code Diagnosis Note [id number] [facility] [address] [place] [address] [id number] 1 02/04/2021 00:00:00 02/05/2021 18:19:58 [id number] [facility] [address] [place] [address] [id number] 1 08/01/2021 00:00:00 08/01/2021 10:55:56 [id number] [facility] [address] [place] [address] [id number] 1 02/06/2022 00:00:00 02/06/2022 14:41:26 [id number] [facility] [address] [place] [address] [id number] 1 08/07/2022 00:00:00 08/07/2022 15:07:10 [id number] Von Haq MD [facility] [address] [address] 02/05/2023 14:14:15 02/05/2023 15:16:30 Pure hypercholesterolemia 808597926 E78.00 [id number] Von Haq MD [facility] [place] [address] [place] [address] 08/06/2023 14:39:56 08/06/2023 15:19:32 Pure hypercholesterolemia 452608745 E78.00 Long-term drug therapy [id number] Z79.899 Health Concerns Section Related Observation LastModified by Organization Detai ls LastModified Time None Recorded Concern Status LastModified by Organization Details LastModified Time None Recorded Advance Directives Directive N: Payers Encounter Date Sequence Insurance Name Policy Number Policy Daigle Covered Member ID Daigle Member ID Guarantor Name 02/05/2023 1 [facility] (MEDICARE REPLACEMENT/A DVANTAGE - HMO) [id number] Matthew Orantes [id number] Matthew Orantes 08/06/2023 1 [facility] (MEDICARE REPLACEMENT/A DVANTAGE - HMO) [id number] Matthew Orantes [id number] Matthew Orantes Notes Date Note Type Note Provider Name and Address Organization Details Recorded Time 02/05/2023 text/html Hyperlipidemia taking his rosuvastatin without side effects. Varicose veins of the lower leg asymptomatic Von Haq MD [address], [place] [address], [place], [address], [address] [employer] 02/05/2023 15:19:59 08/06/2023 text/html Hyperlipidemia taking his rosuvastatin without side effects. Varicose veins of the lower leg asymptomatic Von Haq MD [address], [facility] [address], [place], [address], [employer] 08/06/2023 22:53:47
[2024-10-13] MEDS: LACTATED RINGERS 1,000 ML 30 ML IV CONT (11:00)
[2024-10-13 11:18] VITALS: BMI 24.7
--- NOTE | 2024-10-13 12:50 | P.PNAN_ITS ---
Anes - Initial Pre Proc Eval Procedure: Operation Date: 10/13/24 12:30 Proposed Procedures p Excision Posterior Scalp Cyst Times Two - Albin Mg MD Date/Time: 10/13/24 12:50 Surgeon: Albin Mg MD Pre Op Diagnosis: Scalp Cyst times 2 Patient Data Age: 69 Gender: M Height: 1.83 m Weight: 82.9 kg Allergies Allergy/AdvReac Type Severity Reaction Status Date / Time No Known Allergies Allergy Verified 10/13/24 11:15 Home Medications ?Medication ?Instructions ?Recorded ?Confirmed ?Type alfuzosin 10 mg tablet,extended 10 mg PO DAILY 10/02/24 10/02/24 History release 24 hr multivitamin (One-A-Day Essential 1 tablet PO DAILY 10/02/24 10/02/24 History tablet) omega 6-jkw-yyt-fish oil 1,000 mg 3 cap PO DAILY 10/02/24 10/02/24 History (120 mg-180 mg) capsule (Fish Oil) rosuvastatin 10 mg sprinkle capsule 10 mg PO DAILY 10/02/24 10/02/24 History Patient hx anesthesia problems: none Family hx anesthesia problems: none Results Review: All pre-operative results and documents have been reviewed as part of the pre- operative evaluation. [facility] Surgical History Surgical History H/O hernia repair 2005 Family History Family History Sibling Alcoholism Father Hypertension Social History Social History Smoking status: Former smoker Tobacco type: cigars Alcohol intake: former Do You Feel Safe in your Home?: Yes Lack of Transportation: No Lack of Food: Never True Current Housing: I Have Housing Concerned About Future Housing: No Difficulty Paying Gas/Electric Bills: No Difficulty Paying for Meds: No Currently Unemployed: No Education: High School Diploma/GED Difficulty w/ Childcare or Family Care: No Anes - Eval Final PreProcedure Day of Procedure 10/13/24 12:50 Patient weight: normal Heart: regular rate and rhythm Lungs: clear to auscultation Airway: Mallampati scale class III Neurological: alert and oriented Last oral intake: >/= 8 hours ASA classification: II Emergent: no Anesthetic plan: proceed Anesthesia type and monitoring: general LMA and standard monitoring Results Review: All pre-operative results and documents have been reviewed as part of the pre- operative evaluation. Informed Consent: The patient's anesthetic plan and its attendant risks and benefits were discussed with the patient/family/POA. Questions were solicited and answers provided to the satisfaction of the patient/family/POA.
--- NOTE | 2024-10-13 13:01 | WPDHPUPDATE1 ---
History and Physical Update Update Date/Time: 10/13/24 13:01 History and Physical has been reviewed, including an updated exam of the patient. There are NO changes in the patient's condition. Risks, benefits, and alternatives have been discussed and questions answered. Patient agrees to proceed with procedure.
[2024-10-13] MEDS: ceFAZolin 2 GM/D5W 50 ML 2 GM/50 ML BAG IVPB (13:06)
[2024-10-13] MEDS: BUPivacaine HCL 0.5% 10 ML AMP 20 ML INFILTRATE (13:33)
[2024-10-13] MEDS: LIDO 1%/EPINEPHRINE 1:100,000 20 ML VIAL INFILTRATE (13:33)
[2024-10-13] MEDS: KETOROLAC 15 MG/ML VIAL (*BKC) IV PUSH (14:11)
[2024-10-13 14:25] VITALS: BP 113/66; PULSE 63; RESP 12; TEMP 36.1; O2SAT 100
[2024-10-13 14:40] VITALS: BP 109/68; PULSE 59; RESP 13; O2SAT 100
[2024-10-13 14:55] VITALS: BP 116/82; PULSE 60; RESP 12; O2SAT 99
[2024-10-13 15:05] VITALS: BP 120/69; PULSE 61; RESP 14
[2024-10-13 15:35] VITALS: BP 101/69; PULSE 55; RESP 16
--- NOTE | 2024-10-13 15:36 | P.OP_ITS ---
Procedure Note - Detailed Date of Procedure 10/13/24 Pre-op Diagnosis Scalp/posterior neck Cyst times 2 Post-op Diagnosis Same Procedure Performed Excision of posterior neck/scalp this x2 with a 5cm intermediate layered wound closure and a 3cm intermediate layered wound closure. (total 8 cm intermediate layered wound closure.) Surgeon Albin Mg MD Manager [employer] [place] [employer] INTERPRETER Anesthesia General Indications Patient is a 69-year-old gentleman presented with sebaceous cyst in the posterior neck and lower occipital scalp regions. The right posterior neck scalp cyst was infected when he 1st presented. This was incised and drained and the sebaceous material expressed out of the cyst to allow the cyst to collapse. The affectionate now resolved and I presents to excise the reason the remnants of the right posterior neck and scalp cyst as well as a smaller intact left pos terior neck and scalp cyst. Findings The patient had a 3x1.5x1cm right posterior occipital scalp/posterior neck cyst which was closed with a 5cm intermediate layered wound closure after excision. He also had a 2x1.2x1.5cm nonruptured left posterior occipital scalp/posterior neck cyst which after excision was closed with a 3cm intermediate layered wound closure. Description of Procedure After informed consent was obtained patient brought to the operating room was placed under general LMA anesthesia by the anesthesiologist. He was then turned onto the left lateral decubitus position on the operating table. The area of the lower posterior scalp region and upper posterior cervical region of the neck was then prepped and draped in usual sterile fashion. A time-out was then performed correctly identifying the patient as well as procedure to be performed. Site marking was verified. He was given perioperative IV antibiotics. I 1st addressed the cyst wall remnants on the right posterior neck/occipital scalp region. 1% lidocaine mixed with 0.5% Marcaine was injected around the cyst wall remnants. I then made a transverse elliptical incision around the remaining collapsed cyst wall utilizing a scalpel. This carried deeply down to the dermis of the skin and then electrocautery was used to completely excise out the ellipse of skin and subcutaneous tissue encompassing the whole collapsed cyst wall. The cyst wall remnants measured 3x1.5x1cm. It was sent to pathology for examination. The wound was then irrigated with sterile saline solution hemostasis was good. It was then closed with an intermediate layered wound closure measuring 5cm in length. Interrupted 2-0 Vicryl sutures were placed in the deep subcutaneous tissues. This was followed by interrupted layer of 3-0 Vicryl sutures in the deep dermal tissues. The skin edges were then approximated utilizing a running subcuticular 4-0 Monocryl suture. A 2nd non ruptured sebaceous cyst which was smaller was located on the left posterior cervical neck region/occipital region. After injecting around the cyst the same local anesthetic mixture I then made a transverse elliptical incision it completely the encompassing the cyst wall within the ellipse of tissue. I carried the dissection deeply down through the dermis skin and then shelled out a portion of the cyst wall from the surrounding subcutaneous tissue sharply with scalpel and scissor dissection. I then utilized electrocautery to completely excise out the whole cyst without violating the cyst wall. The attached ellipse of skin was excised as well. The cyst measured 2x1.2x1.5cm. It was sent to pathology for examination as well. The incision was then irrigated sterile saline solution hemostasis was achieved electrocautery. This area required a 3cm intermediate layered wound closure. Interrupted 2-0 Vicryl sutures were placed in the deeper subcutaneous tissues followed by interrupted 3-0 Vicryl sutures in the deep dermal layer. The skin edges were approximated utilizing a running subcuticular 4-0 Monocryl suture. This incision was then c leaned and then skin glue was applied. Skin glue was applied to the other incision as well. The patient tolerated the procedure well no complications. All sponges, needles, and instrument counts were correct at the end procedure. EBL was _20__cc. The patient was awakened and taken to recovery in stable and satisfactory condition. Implants None Estimated Blood Loss 20 Drains No Packing No Pathology Yes (Cyst x2 to pathology) Complications No immediate complications Condition Stable Disposition PACU [facility] Billing Surgery - Charge Forward: Surgery Billing
== END 2024-10-13 15:48 | disposition home or self-care (01) ==
PROVIDERS: PCP Internal Medicine; Visit Provider Surgery
PROC: (CPT 11426; principal; 2024-10-13 12:30)
DX: L72.0 Epidermal cyst (principal); Z98.890 Other specified postprocedural states; Z87.891 Personal history of nicotine dependence
CPT/HCPCS: 11426; 11424; 12034; 88305; A9270; J0690; J1885; J2004; J2250; J2270; J2371; J2704; J7120